=== PATIENT | male | born 1980 | race Caucasian/White ===

== ENCOUNTER 2025-02-02 14:27 | Outpatient (AMB) | payer SELFPAY ==
[2025-02-02 14:39] VITALS: BP 102/62; PULSE 72; O2SAT 98; BMI 34.3
--- NOTE | 2025-02-02 14:39 | HO.NEPHOV_ITS ---
Vital Signs 02/02/25 14:39 02/02/25 14:55 Height 5 ft 9 in Weight 232 lb BMI 34.3 BP 102/62 90/60 Blood Pressure Location Lt brachial Lt brachial Position Sitting Sitting Pulse 72 Pulse Source Pulse Oximeter Pulse Oximetry (%) 98 Oxygen Delivery Method Room Air Intake Visit Reasons: HFU Miley Cataño Dx: HTN Guest Relations Manager Required: No Accompanied by: Self / Same As Patient Allergies No Known Allergies Allergy (Verified 02/08/25 14:46) Medication List - Last Reconciled 02/02/25 by Tuan Oro MD aspirin 81 mg PO DAILY chlorthalidone 25 mg PO DAILY clopidogrel 75 mg PO DAILY labetalol 200 mg PO BID lisinopril 40 mg PO DAILY 3 months nifedipine ER 60 mg PO DAILY rosuvastatin 40 mg PO QPM HPI Comments Details: History of Present Illness The patient is a 44 year old male presenting for follow-up after a recent hospitalization for severe hypertension. He was diagnosed with hypertension approximately 2 years ago and his blood pressure was previously managed with lisinopril 40 mg, after a trial of a lisinopril-amlodipine combination. He was hospitalized a week ago at [facility] [place] after presenting with a blood pressure over 200 mmHg, accompanied by numbness in his fingers. During his few-day hospital stay, he was started on nifedipine 60 mg, lisinopril, labetalol 200 mg twice daily, and chlorthalidone. The patient reports that his current medication regimen is too strong, causing lightheadedness on standing, numbness, shortness of breath, and weakness. He also reports sexual dysfunction, which he suspects may be related to chlorthalidone or labetalol. At home, his blood pressure has been around 141/70- something this week after being higher the first week post-discharge. He was also started on rosuvastatin 40 mg for high cholesterol, which he believes is too strong and causes stomach aches, general achiness, and fatigue. The patient has a history of anxiety, for which he takes Lexapro. He denies any history of heart problems, does not smoke, and does not drink alcohol. He admits to a diet high in sodium from eating out frequently, though he is now trying to eat better and increase his water intake. 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 The patient does not currently have a primary care physician. Physical Exam General: Awake. Comfortable. HENT: Neck supple. Mucosa moist. Pulmonary: Lungs aeration equal. No rales. Cardiology: Heart S1-S2 heard. No gallop. Abdomen: Soft. Non tender. Bowel sounds normal. Neurologic: No involuntary movements. No myoclonus. Extremities: No edema. Mild numbness in fingers. [facility] Medical History High blood pressure Hypertension Family History Mother No problems noted. Father Heart problem Hypertension Social History Alcohol intake: never Physical Exam Vital Signs: Last Vital Signs Pulse 72 02/02/25 14:39 BP 90/60 02/02/25 14:55 Pulse Ox 98 02/02/25 14:39 Oxygen Delivery Method Room Air 02/02/25 14:39 BMI result Body Mass Index 34.3 Results Reviewed Nephrology Results: Hgb, (14.0-18.0) 14.6 g/dL 12/23/17 WBC, (4.8-10.8) 4.4 X10*3/uL L 12/23/17 Plt Count, (160-400) 198 X10*3/uL 12/23/17 Sodium, (135-145) 137 mmol/L 02/05/25 Potassium, (3.3-5.1) 3.7 mmol/L 02/05/25 Chloride, (96-108) 99 mmol/L 02/05/25 Carbon Dioxide, (22-29) 27 mmol/L 02/05/25 BUN, (9-16) 27 mg/dL H 02/05/25 Creatinine, (0.5-1.4) 1.25 mg/dL 02/05/25 Calcium, (8.4-10.2) 9.6 mg/dL 02/05/25 Assessment & Plan Assessment & Plan (1) Hypertension: Code(s): I10 - Essential (primary) hypertension Category: Medical Qualifiers: Hypertension type: essential hypertension Qualified Code(s): I10 - Essential (primary) hypertension Plan 1. Hypertension - The current antihypertensive regimen is causing symptomatic orthostatic hypotension with a standing blood pressure of 90/60 mmHg. - Labetalol will be decreased from 200 mg twice daily to 100 mg twice daily, with a plan to taper off completely. - The patient's side effects of shortness of breath and sexual dysfunction are suspected to be from labetalol and/or chlorthalidone. - Lisinopril will be continued as it has been well-tolerated in the past. - Blood tests will be ordered to evaluate kidney function to rule out a secondary cause of hypertension. - The patient is to follow up in one week to reassess blood pressure and further adjust medications. 2. Hyperlipidemia - The patient reports side effects including stomach ache, achiness, and fatigue from rosuvastatin 40 mg, which is considered a high starting dose. - The rosuvastatin dose will be reduced from 40 mg to 20 mg daily. - The patient was advised to establish care with a primary care doctor for ongoing management of his cholesterol. 3. Medical Leave - A work note will be provided for this visit. - The patient was advised to contact the hospital to obtain documentation for his recent hospital stay, as needed for his medical leave paperwork at work. Orders: Orders Basic Metabolic Panel 02/05/25 I10 - Essential (primary) hypertension Coding Level of Care Code New Pt Level 4 (90038) Diagnoses Essential hypertension I10 Hypertension type: essential hypertension
[2025-02-02 14:55] VITALS: BP 90/60
--- OUTSIDE RECORDS SUMMARY | 2025-02-02 18:34 | XMS_ITS | Clinical Summary ---
Author Organization [facility] Address [address] [place] [phone] Phone Care Team Providers Care Emissions Engineer Name Role Phone Anay Govea MD Primary Care Provid er Allergies No known active allergies Medications lisinopril (PRINIVIL,ZESTR IL) 40 MG tablet Take 40 mg by mouth daily. Active chlorthalidone (HYGROTON) 25 MG tablet Take 1 tablet (25 mg total) by mouth daily. 30 tablet 1 5 03/20/19 26 Active clopidogrel (PLAVIX) 75 mg tablet Take 1 tablet (75 mg total) by mouth daily for 19 doses. 19 tablet 5 02/08/20 25 Active labetaloL (TRANDATE) 200 MG tablet Take 1 tablet (200 mg total) by mouth 2 (two) times a day. 60 tablet 1 5 03/19/19 26 Active NIFEdipine (ADALAT CC) 60 MG 24 hr tablet Take 1 tablet (60 mg total) by mouth daily. 30 tablet 1 5 03/20/19 26 Active aspirin 81 MG EC tablet Take 1 tablet (81 mg total) by mouth daily. 30 tablet 1 5 03/20/19 26 Active rosuvastatin (CRESTOR) 40 MG tablet Take 1 tablet (40 mg total) by mouth every evening. 30 tablet 1 5 03/19/19 26 Active chlorthalidone (HYGROTON) 25 MG tablet Take 1 tablet (25 mg total) by mouth daily. 30 tablet 1 5 01/19/20 25 Discontinued clopidogrel (PLAVIX) 75 mg tablet Take 1 tablet (75 mg total) by mouth daily for 19 doses. 19 tablet 5 01/19/20 Discontinued labetaloL (TRANDATE) 200 MG tablet Take 1 tablet (200 mg total) by mouth 2 (two) times a day. 60 tablet 1 5 01/19/20 Discontinued NIFEdipine (ADALAT CC) 60 MG 24 hr tablet Take 1 tablet (60 mg total) by mouth daily. 30 tablet 1 5 01/19/20 Discontinued aspirin 81 MG EC tablet Take 1 tablet (81 mg total) by mouth daily. 30 tablet 1 5 01/19/20 Discontinued rosuvastatin (CRESTOR) 40 MG tablet Take 1 tablet (40 mg total) by mouth every evening. 30 tablet 1 5 01/19/20 Discontinued Active Problems Problem Noted Date Diagnosed Date Stroke risk 01/17/2025 Right hand weakness 01/16/2025 Assessment & Plan (01/17/2025 3:36 PM EST): - Unclear etiology, symptoms lasted approximately 5 minutes initially starting in the right finger spreading to the hand, arm and into the right lip as well as some numbness and tingling without materials associate strength loss. --Patient was noted to be severely hypertensive on presentation to the ED with BP of 240 systolic, has a history of hypertension noncompliant with lisinopril -CTA head and neck unremarkable, no significant LVO or vessel disease. -Suspect hypertensive emergency/urgency presenting for symptoms of possible CVA, teleneurology was consulted recommended further stroke workup MRI brain with some small vessel disease, otherwise unremarkable Plan: Teleneurology consulted rec speciated TTE ordered and pending Telemetry monitoring Teleneurology recommended extensive laboratory workup, DAPT therapy for 21 days, high intensity statin. Assessment & Plan (01/16/2025 6:22 PM EST): - Unclear etiology, symptoms lasted approximately 5 minutes initially starting in the right finger spreading to the hand, arm and into the right lip as well as some numbness and tingling without materials associate strength loss. -Neurological exam at this time is unremarkable, strength testing 5 out of 5 and sensation 5 out of 5 bilateral upper lower extremities. No ataxia. -Patient was noted to be severely hypertensive on presentation to the ED with BP of 240 systolic, has a history of hypertension noncompliant with lisinopril -CTA head and neck unremarkable, no significant LVO or vessel disease. -Suspect hypertensive emergency/urgency presenting for symptoms of possible CVA, teleneurology was consulted recommended further stroke workup Plan: Teleneurology consulted rec speciated Allow for permissive hypertension with BP goal less than 220 systolic Resume lisinopril at this time given severe hypertension MRI of the brain ordered and pending TTE ordered and pending Telemetry monitoring Teleneurology recommended extensive laboratory workup, DAPT therapy for 21 days, high intensity statin. Hypertensive urgency 01/16/2025 Assessment & Plan (01/17/2025 3:36 PM EST): - Underlying history of hypertension, has missed lisinopril on multiple occasions Does think he was diagnosed around 30, father had htn as well. Labs normal pointing away from hyperaldosteronism, and UA normal so nephritic syndrome unlikely. Resume lisinopril, have had to add chlorthalidone, labetalol, nifedipine -BP on presentation 240 systolic -Presented with symptoms of concerning for CVA Plan: Resume lisinopril, have had to add chlorthalidone, labetalol, nifedipine Kidney US to see if they are equal size Will check serum catecholamines, metanephrines Continue close clinical monitoring Assessment & Plan (01/16/2025 6:22 PM EST): - Underlying history of hypertension, has missed lisinopril on multiple occasions -BP on presentation 240 systolic -Presented with symptoms of concerning for CVA Plan: Resume lisinopril at this time BP goal of approximately 220 systolic less than 220 systolic in the first 24 hours per teleneurology recommendations for CVA workup Subsequently reduced to 160 As needed labetalol/hydralazine Continue close conical monitoring Encounters Date Type Department Care Team Description 01/18/2025 Procedure Pass [facility] Echo Lab [address] [place] [address] 01/16/2025 2:15 PM EST - 01/18/2025 3:30 PM EST Hospital Encounter [facility] Telemetry [address] [place] [address] Keanu Gutiérrez MD Grachev, Maksim, DO Russo, Margaret A, MD McKenna-Weiss, Eli, MD Discharge Disposition: Home or Self Care 01/16/2025 Procedure Pass [facility] Echo Lab [address] [place] [address] 01/16/2025 Procedure Pass [facility], Mri [address] [address] 01/16/2025 Procedure Pass [facility], Ct Scan [address] [address] 01/16/2025 Procedure Pass [address] [address] from Last 3 Months Social History Tobacco Use Types Packs/Day Years Used Date Smoking Tobacco: Never Assessed Education Answer Date Recorded Are you interested in more education? Not on kat e 01/16/2025 Are you concerned about learning? Not on file 01/16/2025 No 01/16/2025 No 01/16/2025 Food Answer Date Recorded Within the past 6 months we worried whether our food would run out before we got money to buy more. Never True 01/16/2025 Within the past 6 months the food we bought just didn't last and we didn't have enough money to get more. Never True Residential Stability Answer Date Recor ded What is your housing situation today? I have osbaldo sasha 01/16/2025 How many times have you move d in the past 12 months? Zero (I did not move) 01/16/2025 Paying for Meds Answer Date Recorded Do you have trouble paying for medicines? No 01/16/2025 Paying Utility Bills Answer Date Record ed Do you have trouble paying your heating or elect ricity bill? No 01/16/2025 Transportation Answer Date Recorded Has the lack of transportati on kept you from medical appointments or from getting medications? No 01/16/2025 Digital Access Answer Date Recorded No 01/16/2025 Yes 01/16/2025 Do you have reliable internet access at home? Ye s 01/16/2025 Do you have a device (e.g., phone, tablet, computer) with a working camera? Yes 01/16/2025 Intimate Partner Violence Answer Date R ecorded Are you denied basic needs s uch as food, clothing, or medical care? No 01/16/2025 In the past 12 months have y ou been in a relationship with a person who hurts, threatens, or tries to control you? No 01/16/2025 Are you denied basic needs s uch as food, clothing, or medical care? No 01/16/2025 In the past 12 months have y ou been in a relationship with a person who hurts, threatens, or tries to control you? No 01/16/2025 Sex and Gender Information Value Date Recorded Sex Assigned at Male 01/16/2025 1:39 PM EST Legal Sex Male 1:20 PM EST Gender Identity Male 01/16/2025 1:39 PM EST Sexual Orientation Not on file Last Filed Vital Signs Vital Sign Reading Time Taken Comments Blood Pressure 136/84 01/18/2025 11:56 AM EST Pulse 81 01/18/2025 11:56 AM EST Temperature 36.9 C (98.4 F) 01/18/2025 11:56 AM EST Respiratory Rate 18 01/18/2025 11:5 6 AM EST Oxygen Saturation 95% 01/18/2025 11: 56 AM EST Inhaled Oxygen Concentration - - Weight 107.6 kg (237 lb 3.4 oz) 025 11:50 PM EST Height 175.3 cm (5' 9 ) 01/16/2025 11:5 0 PM EST Body Mass Index 35.03 01/16/2025 11:50 PM EST Plan of Treatment Health Maintenance Due Date Last Done Comments Adult Td,Tdap Booster 1980 BLOOD PRESSURE 1980 DEPRESSION SCREENING 1992 SMOKING Hx and SMOKELESS TOBACCO SCREENING 1993 HEPATITIS C SCREENING 1998 HIV ONE-TIME SCREENING (18-6 5 YEARS) 1998 INFLUENZA VACCINE (#1) 2024 COVID-19 VACCINE ( - 2024-2 6 season) 2024 CREATININE LEVEL 01/18/2026 01/18/2025, 01/17/2025, 01/16/2025 POTASSIUM LEVEL 01/18/2026 01/18/2025, 01/17/2025, 01/16/2025 SCREENING FOR DIABETES 01/19/2028 , 01/16/2025 LIPID PANEL 01/16/2030 01/16/2025 HEPATITIS A VACCINES Aged Out No long er eligible based on patient's age to complete this topic HIB VACCINES Aged Out No longer eligi ble based on patient's age to complete this topic MENINGOCOCCAL VACCINES (ACWY) Aged Out No longer eligible based on patient's age to complete this topic MENINGOCOCCAL VACCINES (B) Aged Out N o longer eligible based on patient's age to complete this topic PNEUMOCOCCAL VACCINES (0-49 years) Aged Out No longer eligible b ased on patient's age to complete this topic Medical Devices Not on file Procedures Procedure Name Priority Date/Time Associated Diagnosis Comments TTE LIMITED W/ AGITATED SALINE Routine 01/18/2025 1:18 PM EST Transient cerebral ischemia, unspecified type TTE COMPREHENSIVE Routine 01/18/2025 8:3 7 AM EST Transient cerebral ischemia, unspecified type BASIC METABOLIC PANEL (BMP) Routine 01/18/2025 5:10 AM EST ALDOSTERONE Routine 01/18/2025 5:10 AM EST RENIN ACTIVITY Routine 01/18/2025 5:10 AM EST US KIDNEY(S) ONLY Routine 01/17/2025 2:4 5 PM EST MRI BRAIN WITHOUT CONTRAST Required for discharge 01/17/2025 10:13 AM EST PHOSPHORUS Routine 01/17/2025 5:21 AM EST MAGNESIUM Routine 01/17/2025 5:21 AM EST COMPREHENSIVE METABOLIC PANEL (CMP) Routine 01/17/2025 5:21 AM EST CBC AND DIFFERENTIAL Routine 01/17/2025 5:20 AM EST CBC AND DIFFERENTIAL Routine 01/17/2025 5:20 AM EST C-REACTIVE PROTEIN (CRP) STAT 01/16/2025 6:14 PM EST SEDIMENTATION RATE (ESR) STAT 01/16/2025 6:14 PM EST LIPOPROTEIN(A) STAT 01/16/2025 6:14 PM EST CCP IGG ANTIBODIES STAT 01/16/2025 6: 14 PM EST RHEUMATOID FACTOR STAT 01/16/2025 6:1 4 PM EST PTT (SPECIAL COAGULATION) STAT 01/16/2025 6:13 PM EST PT/INR (SPECIAL COAGULATION) STAT 01/16/2025 6:13 PM EST SPECIAL COAGULATION INTERPRETATION STAT 01/16/2025 6:13 PM EST ANTI-NEUTROPHIL CYTOPLASMIC ANTIBODY (ANCA) STAT 01/16/2025 6:13 PM EST HOMOCYSTEINE STAT 01/16/2025 6:13 PM EST ANTI-CARDIOLIPIN ANTIBODIES STAT 01/16/2025 6:13 PM EST [id number] I ANTIBODIES STAT 01/16/2025 6:13 PM EST LUPUS ANTICOAGULANT PANEL STAT 01/16/2025 6:13 PM EST D-DIMER STAT 01/16/2025 6:13 PM EST TOXICOLOGY SCREEN, URINE STAT 01/16/2025 5:09 PM EST URINALYSIS WITH REFLEX TO URINE CULTURE STAT 01/16/2025 5:09 PM EST ECG 12-LEAD STAT 01/16/2025 2:44 PM EST POCT GLUCOSE STAT 01/16/2025 2:37 PM EST CBC AND DIFFERENTIAL STAT 01/16/2025 2:33 PM EST HEMOGLOBIN A1C STAT 01/16/2025 2:33 PM EST LIPID PANEL STAT 01/16/2025 2:33 PM EST TSH WITH REFLEX STAT 01/16/2025 2:33 PM EST ETHANOL, BLOOD STAT 01/16/2025 2:33 PM EST TROPONIN STAT 01/16/2025 2:33 PM EST PT-INR STAT 01/16/2025 2:33 PM EST LFTS (HEPATIC PANEL) STAT 01/16/2025 2:33 PM EST MAGNESIUM STAT 01/16/2025 2:33 PM EST BASIC METABOLIC PANEL (BMP) STAT 01/16/2025 2:33 PM EST CBC AND DIFFERENTIAL STAT 01/16/2025 2:[address] HEAD (CODE STROKE) WITHOUT CONTRAST STAT 01/16/2025 2:[address] ANGIO HEAD (CODE STROKE) W CONTRAST, CT ANGIO NECK W CONTRAST STAT 01/16/2025 2:09 PM EST from Last 3 Months Results * TTE LIMITED W/ AGITATED SALINE (01/18/2025 1:18 PM EST) Anatomical Region Laterality Modality Heart Ultrasound Narrative 01/18/2025 1:29 PM EST Limited repeat echo to perform bubble study. A bubble study was performed using agitated saline both at rest and with Valsalva. There was no crossing of bubbles to suggest a PFO. General Findings The image quality was adequate. Agitated saline was administered during the study. The predominant rhythm during the study was sinus. IAS/IVS There is no evidence of patent foramen ovale (PFO) by agitated saline contrast. There are no detected shunting changes with maneuvers. us Jackson Ledesma MD CV ECHO ORDERABLES Final Resu lt * TTE COMPREHENSIVE (01/18/2025 8:37 AM EST) Body Surface Area 2.22 m2 Height 175 cm Weight 108 kg Systolic BP 132 mmHg Diastolic BP 88 mmHg Interventricular Septum Thickness 12 6 - 11 mm Left Ventricle Internal Diameter End Diastole 41 42 - 58 mm Left Ventricle Internal Diameter End Systole 28 <40 mm Left Ventricular Outflow Tract Diameter 25.0 mm LVOT VTI REST 229.0 mm Left Ventricular Outflow Tract Velocity 1.3 m/s Left Ventricular Outflow Tract Gradient at Rest 6 mmHg Left Ventricular Posterior Wall Thickness 12 6 - 11 mm Left Ventricle Ea Lateral Wave Speed 9.3 cm/s Left Ventricle Ea Septal Wave Speed 6.3 cm/s Ejection Fraction 68 50 - 75 Percent Aortic Valve Mean Gradient 5 mmHg Aortic Valve Time Velocity Integral 288.0 mm Aortic Valve Peak Velocity 1.5 m/s Aortic Valve Peak Gradient 9 mmHg Aortic Sinus Diameter 39 <40 mm Ascending Aorta Diameter 37 <36 mm Left Ventricle A Wave Speed 85.1 cm/s Left Ventricle E Wave Speed 52.1 cm/s Mitral Valve Mean Gradient 1 mmHg Mitral Valve Peak Gradient 3 mmHg Mitral Valve Area Continuity Equation 5.10 cm2 Pulmonary Valve Peak Velocity 1.0 m/s Pulmonary Valve Peak Gradient 4 mmHg Right Ventricle Basal Diameter 37 25 - 41 mm Raw LV EF% 53 % MV E/E' Tissue Velocity Lateral 5.60 Relative Wall Thickness 0.59 0.22 - 0.42 Left Ventricle indexed to BSA 77.4 g/m2 MV E/A ratio 0.6 MV E/e' septal 8.27 Left Ventricle E/e' Average 6.9 Aortic Valve Prosthetic Peak Gradient 9 mmHg Aortic Valve Prosthetic Mean Gradient 5 mmHg Aortic Valve Sinus Index by BSA 18 mm/m2 Aorta Sinus Index by Height 2.23 cm/m Aorta Sinus CSA index by Height 6.82 cm2/m Ascending Aorta Index 17 mm/m2 Asc Aorta CSA Index by Height 6.14 cm2/m Mitral Valve Prosthetic Peak Gradient 3 mmHg Mitral Valve Prosthetic Mean Gradient 1 mmHg Pulmonic Valve Prosthetic Peak Gradient 4 mmHg MGB CV AV DIMENSIONLESS INDEX (PEAK) - STRESS ECHO DOBUT - REST 0.87 Ascending Aorta Index 17 mm Aortic Sinus Index 18 mm Ascending Aorta Diameter 17 mm Aortic Valve Sinus Index 1 18 20 - 32 mm AO ASC DIAM BSA INDEX 16.67 Echo E/Ea 8.27 Left Atrial Volume Index 21 16 - 34 mL/m2 Right Ventricle TAPSE 27 >=17 mm Right Ventricle Pulse Doppler S Wave 14.0 >=9.5 cm/s Left Atrial Volume 46 mL Left Atrial Volume Index by Height 26 mL/m Anatomical Region Laterality Modality Heart Ultrasound Narrative 01/18/2025 11:46 AM EST Images from the original result were not included. Mild concentric LVH. LV cavity size is normal. LV systolic function is normal with EF 60 to 65%. There are no regional wall motion abnormalities. Normal diastolic function. Normal RV size and function. There is no hemodynamically significant valvular disease. There is aortic ectasia with an aortic root measuring 3.9 cm and ascending segment measuring 3.7 cm. No prior study for comparison. A bubble study was not performed, but I am going to have a limited study repeated to get this done. Left Ventricle The left ventricle is normal in size. There is concentric hypertrophy. There is normal left ventricular systolic function. The LV ejection fraction is 60% (calculated via the single plane method of discs). There are no wall motion abnormalities. LV diastolic function appears within normal limits for age. The E/A ratio is 0.6. The e' septal wave velocity is 6.3 cm/s. The e' lateral wave velocity is 9.3 cm/s. The average E/e' ratio is 6.9. Right Ventricle The right ventricle is normal in size. The RV basal dimension is 37 mm. There is normal right ventricular systolic function. TAPSE is 27 mm. RV S' wave is 14.0 cm/s. Left Atrium The left atrium is normal in size. The left atrial volume index by BSA is 21 mL/m2. Right Atrium The right atrium is normal in size. The IVC is not assessed. Mitral Valve The mitral valve appears normal. There is no mitral stenosis. There is no mitral regurgitation. Tricuspid Valve The tricuspid valve appears normal. There is no tricuspid stenosis. There is trace tricuspid regurgitation. RV systolic pressure could not be estimated due to insufficient TR Doppler envelope. Aortic Valve The aortic valve is tricuspid. There is no aortic stenosis. There is no aortic regurgitation. The aortic sinus diameter is 39 mm. The ascending aortic diameter is 37 mm. Pulmonic Valve The pulmonic valve is suboptimally visualized. The pulmonic valve appears normal. There is no pulmonic stenosis. There is no pulmonic regurgitation. Pericardium The pericardium appears normal. General Findings The image quality was fair (3). Technique(s) used in the evaluation: Color flow Doppler and Spectral Doppler. The predominant rhythm during the study was sinus. Comparison Findings There are no prior studies for comparison. IAS/IVS The interatrial septum appears normal. There is no evidence of patent foramen ovale (PFO). James Brady DO CV ECHO ORDERABLES Final Resul t * Aldosterone (01/18/2025 5:10 AM EST) Aldosterone, S 4.2 <=21 ng/dL 01/22/2025 10:05 PM EST [facility] Comment: ADDITIONAL INFORMATION Reference range for patients 11 years and older is based on upright A.M. collection from subjects without sodium restrictions. This test was developed and its performance characteristics determined by [facility] in a manner consistent with CLIA requirements. This test has not been cleared or approved by the U.S. Food and Drug Administration. Blood (Blood) 01/18/2025 5:1 0 AM EST 01/18/2025 6:11 AM EST Renee Moya MD LAB BLOOD BKR ORDERABLES Fi nal Result DAVE LARSON) [facility] [address] [place], [place] [address] [phone] * Renin Activity (01/18/2025 5:10 AM EST) Pathologist [facility] Renin Activity, P 3.1 ng/mL/h 025 1:15 PM EST [facility] Comment: REFERENCE VALUE (Peripheral vein specimen) Na-deplete, upright: Mean: 5.9 Range: 2.9-10.8 Na-replete, upright: Mean: 1.0 Range: < or =0.6-3.0 ADDITIONAL INFORMATION Testing performed by Liquid Chromatography-Tandem Mass Spectrometry (LC-MS/MS). This test was developed and its performance characteristics determined by [facility] in a manner consistent with CLIA requirements. This test has not been cleared or approved by the U.S. Food and Drug Administration. Blood (Blood) 01/18/2025 5:1 0 AM EST 01/18/2025 6:08 AM EST Renee Moya MD LAB BLOOD BKR ORDERABLES Fi nal Result [facility] [address] [place], [place] [id number] [place] [address] * Basic Metabolic Panel (BMP) (01/18/2025 5:10 AM EST) Only the most recent of2 resultswithin the time period is included. [facility] Sodium 139 136 - 145 mmol/L 01/18/2025 6:55 AM EST [facility] Potassium 3.5 3.4 - 5.1 mmol/L 01/18/2025 6:55 AM EST [facility] Chloride 102 98 - 107 mmol/L 01/18/2025 6:55 AM EST [facility] CO2 25 20 - 31 mmol/L 01/18/2025 6:55 AM [facility] Anion Gap 12 3 - 17 mmol/L 01/18/2025 6:55 AM [facility] BUN 21 6 - 23 mg/dL 01/18/2025 6:55 AM [facility] Creatinine 1.20 0.60 - 1.30 mg/dL 01/18/2025 6:55 AM [facility] eGFR 76 >59 mL/min/1.7 3m2 01/18/2025 6:55 AM [facility] Comment:Estimated glomerular filtration rate calculated using the CKD-EPI refit equation. Glucose 94 70 - 99 mg/dL 01/18/2025 6:55 AM [facility] Calcium 9.4 8.5 - 10.5 mg/dL 01/18/2025 6:55 AM [facility] Blood (Blood) 01/18/2025 5:1 0 AM EST 01/18/2025 6:11 AM EST Renee Moya MD LAB BLOOD BKR ORDERABLES Fi nal Result [address] [address] * US KIDNEY(S) ONLY (01/17/2025 2:45 PM EST) Anatomical Region Laterality Modality Abdomen, Kidney Ultrasound 01/17/2025 2:46 PM EST Impressions 01/17/2025 2:46 PM EST 1. No hydronephrosis. 2. No sonographic evidence for solid renal mass or shadowing stone Narrative 01/17/2025 2:46 PM EST US KIDNEY(S) ONLY Referring clinician's provided indication for this examination in [facility]: Hypertension, primary; accelerated HTN in young person, ?disparate size of kidneys TECHNIQUE: Kidney ultrasound. COMPARISON: None available FINDINGS: Right Kidney: Size: 11.2 cm No stones or hydronephrosis. Left Kidney: Size: 11.6 cm No stones or hydronephrosis. Bladder: Underdistended and therefore not well evaluated. Procedure Note Manny Cloud MD - 01/17/2025 US KIDNEY(S) ONLY Referring clinician's provided indication for this examination in [facility]:Hypertension, primary; accelerated HTN in young person, ?disparate size ofkidneys TECHNIQUE: Kidney ultrasound. COMPARISON: None available FINDINGS: Right Kidney: Size: 11.2 cm No stones or hydronephrosis. Left Kidney: Size: 11.6 cm No stones or hydronephrosis. Bladder: Underdistended and therefore not well evaluated. IMPRESSION: 1. No hydronephrosis. 2. No sonographic evidence for solid renal mass or shadowing stone Reene Moya MD IM US RENAL Final Resul t * MRI BRAIN WITHOUT CONTRAST (01/17/2025 10:13 AM EST) Anatomical Region Laterality Modality Head Magnetic Resonan ce 01/17/2025 10:1 5 AM EST Impressions 01/17/2025 10:21 AM EST 1. Probable mild chronic small vessel disease. No acute or subacute infarct. Narrative 01/17/2025 10:21 AM EST MRI BRAIN WITHOUT CONTRAST Referring clinician's provided indication for this examination in [facility]: * Transient ischemic attack (TIA) TECHNIQUE: MRI BRAIN WITHOUT CONTRAST Multi-sequence, multi-planar MRI of the brain was performed without intravenous contrast. COMPARISON: CT head January 16, 2025 FINDINGS: Brain Parenchyma: No acute or subacute infarct. There is one small nonspecific focus of susceptibility effect within the right frontal white matter. No intracranial mass lesion. There are scattered foci of T2 hyperintensity in the white matter, likely a manifestation of chronic small vessel disease. Ventricular System and Extra-Axial Spaces: Normal. No evidence of midline shift or hydrocephalus. Extracranial Structures: Expected arterial flow signal is observed at the skull base. Procedure Note Hugo Ruffin DO - 01/17/2025 MRI BRAIN WITHOUT CONTRAST Referring clinician's provided indication for this examination in [facility]: *Transient ischemic attack (TIA) TECHNIQUE: MRI BRAIN WITHOUT CONTRAST Multi-sequence, multi-planar MRI of the brain was performed withoutintravenous contrast. COMPARISON: CT head January 16, 2025 FINDINGS: Brain Parenchyma: No acute or subacute infarct. There is one smallnonspecific focus of susceptibility effect within the right frontal whitematter. No intracranial mass lesion. There are scattered foci of [id number] in the white matter, likely a manifestation of chronicsmall vessel disease. Ventricular System and Extra-Axial Spaces: Normal. No evidence of midlineshift or hydrocephalus. Extracranial Structures: Expected arterial flow signal is observed at theskull base. IMPRESSION: 1. Probable mild chronic small vessel disease. No acute or subacuteinfarct. us James Brady DO IMG MR HEAD/NECK Final Result * Comprehensive Metabolic Panel (CMP) (01/17/2025 5:21 AM EST) Sodium 139 136 - 145 mmol/L 01/17/2025 7:03 AM [facility] Potassium 3.8 3.4 - 5.1 mmol/L 01/17/2025 7:03 AM [facility] Chloride 102 98 - 107 mmol/L 01/17/2025 7:03 AM [facility] CO2 25 20 - 31 mmol/L 01/17/2025 7:03 AM [facility] Anion Gap 12 3 - 17 mmol/L 01/17/2025 7:03 AM [facility] BUN 16 6 - 23 mg/dL 01/17/2025 7:03 AM [facility] Creatinine 0.90 0.60 - 1.30 mg/dL 01/17/2025 7:03 AM [facility] eGFR 108 >59 mL/min/1.7 3m2 01/17/2025 7:03 AM [facility] Comment:Estimated glomerular filtration rate calculated using the CKD-EPI refit equation. Glucose 94 70 - 99 mg/dL 01/17/2025 7:03 AM [facility] Calcium 9.6 8.5 - 10.5 mg/dL 01/17/2025 7:03 AM [facility] AST 21 <40 U/L 01/17/2025 7:03 AM [facility] ALT 21 <50 U/L 01/17/2025 7:03 AM [facility] Alkaline Phosphatase 93 40 - 130 U/L 01/17/2025 7:03 AM [facility] Bilirubin, Total 1.1 0.0 - 1.2 mg/dL 01/17/2025 7:03 AM [facility] Total Protein 7.5 6.4 - 8.3 g/dL 01/17/2025 7:03 AM [facility] Albumin 4.6 3.5 - 5.2 g/dL 01/17/2025 7:03 AM [facility] Globulin 2.9 1.9 - 4.1 g/dL 01/17/2025 7:03 AM [facility] Blood (Blood) Venipuncture / Unknown 01/17/2025 5:21 AM EST 01/17/2025 6:14 AM EST us [facility] DO LAB BLOOD BKR ORDERABLES Final Result [address] [address] * Phosphorus (01/17/2025 5:21 AM EST) Phosphorus 3.3 2.5 - 4.5 mg/dL 01/17/2025 7:03 AM [facility] Blood (Blood) Venipuncture / Unknown 01/17/2025 5:21 AM EST 01/17/2025 6:14 AM EST us [employer] DO LAB BLOOD BKR ORDERABLES Final Result [address] [address] * Magnesium (01/17/2025 5:21 AM EST) Only the most recent of2 resultswithin the time period is included. Magnesium 2.3 1.7 - 2.6 mg/dL 01/17/2025 7:03 AM [facility] Blood (Blood) Venipuncture / Unknown 01/17/2025 5:21 AM EST 01/17/2025 6:14 AM EST us James Caraballofaribamar LAB BLOOD BKR ORDERABLES Final Result [facility] [address] [place] [address] * CBC and Differential (01/17/2025 5:20 AM EST) Only the most recent of2 resultswithin the time period is included. WBC 6.28 4.00 - 11.00 K/uL 01/17/2025 6:32 AM [facility] RBC 5.10 4.50 - 5.90 M/uL 01/17/2025 6:32 AM [facility] Hemoglobin 15.3 13.5 - 17.5 g/dL 01/17/2025 6:32 AM [facility] Hematocrit 44.7 41.0 - 53.0 % 01/17/2025 6:32 AM [facility] MCV 87.6 80.0 - 100.0 fL 01/17/2025 6:32 AM [facility] MCH 30.0 27.0 - 31.0 pg 01/17/2025 6:32 AM [facility] MCHC 34.2 32.0 - 36.0 g/dL 01/17/2025 6:32 AM [facility] MPV 11.4 8.4 - 12.0 fL 01/17/2025 6:32 AM [facility] RDW-CV 12.6 11.5 - 14.5 % 01/17/2025 6:32 AM [facility] PLT 209 150 - 450 K/uL 01/17/2025 6:32 AM [facility] Neutrophils 63.3 % 01/17/2025 6:32 AM [facility] Lymphocytes 24.7 % 01/17/2025 6:32 AM [facility] Monocytes 10.4 % 01/17/2025 6:32 AM [facility] Eosinophils 1.0 % 01/17/2025 6:32 AM [facility] Basophils 0.3 % 01/17/2025 6:32 AM [facility] Imm Grans 0.3 % 01/17/2025 6:32 AM [facility] NRBC 0.0 <=0.0 /100 WBCs 01/17/2025 6:32 AM [facility] Absolute Neutrophils 3.98 1.92 - 7.60 K/uL 01/17/2025 6:32 AM [facility] Absolute Lymphocytes 1.55 0.72 - 4.10 K/uL 01/17/2025 6:32 AM [facility] Absolute Monocytes 0.65 0.16 - 1.10 K/uL 01/17/2025 6:32 AM [facility] Absolute Eosinophils 0.06 0.00 - 0.50 K/uL 01/17/2025 6:32 AM [facility] Absolute Basophils 0.02 0.00 - 0.15 K/uL 01/17/2025 6:32 AM [facility] Absolute Imm Grans 0.02 0.00 - 0.09 K/uL 01/17/2025 6:32 AM [facility] Absolute NRBC 0.00 <=0.00 K cells/uL 01/17/2025 6:32 AM [facility] Absolute Neutrophils 3.98 1.92 - 7.60 K/uL 01/17/2025 6:32 AM [facility] Comment:Automated cell count . Manual ANC may differ if performed. Diff Type Auto 01/17/2025 6:32 AM [facility] Blood (Blood) Venipuncture / Unknown 01/17/2025 5:20 AM EST 01/17/2025 6:14 AM EST us James Brady DO LAB BLOOD BKR ORDERABLES Final Result [facility] [address] [place] [address] * Lipoprotein(a) (01/16/2025 6:14 PM EST) Blood (Blood) Venipuncture / Unknown 01/16/2025 6:14 PM EST 01/16/2025 6:16 PM EST us James Brady DO LAB BLOOD BKR ORDERABLES Final Result HERNANDEZ (BEAKER) * CCP Antibody, IgG (01/16/2025 6:14 PM EST) CCP Antibody, IgG <8 0 - 16 U/mL 01/18/2025 12:41 PM EST [facility] Blood (Blood) Venipuncture / Unknown 01/16/2025 6:14 PM EST 01/16/2025 6:16 PM EST us James Brady DO LAB BLOOD BKR ORDERABLES Final Result Performing Organization Address City/[facility]/ZIP Co de Phone Number [address] [address] * Erythrocyte Sedimentation Rate (ESR) (01/16/2025 6:14 PM EST) ESR 9 0 - 15 mm/h 01/16/2025 6:32 PM EST [facility] Blood (Blood) Venipuncture / Unknown 01/16/2025 6:14 PM EST 01/16/2025 6:17 PM EST us James Brady DO LAB BLOOD BKR ORDERABLES Final Result Performing Organization Address City/[facility]/ZIP Co de Phone Number [address] [address] * Rheumatoid Factor (01/16/2025 6:14 PM EST) Rheumatoid Factor (RF) <10 <=14 IU/ml 01/16/2025 6:48 PM EST [facility] Blood (Blood) Venipuncture / Unknown 01/16/2025 6:14 PM EST 01/16/2025 6:17 PM EST us James Brady DO LAB BLOOD BKR ORDERABLES Final Result Performing Organization Address [facility] Co de Phone Number [address] [address] * C-Reactive Protein (CRP) (01/16/2025 6:14 PM EST) C Reactive Protein <3.0 <10.0 mg/L 01/16/2025 6:48 PM EST [facility] Comment:NOTE: This reference range is for the evaluation of inflammation. Order CRP, High Sensitivity for cardiac risk status evaluation. Blood (Blood) Venipuncture / Unknown 01/16/2025 6:14 PM EST 01/16/2025 6:17 PM EST James [email or web address] DO LAB BLOOD BKR ORDERABLES Final Result Performing Organization Address [facility] Co de Phone Number [address] [address] * PTT (Special Coagulation) (01/16/2025 6:13 PM EST) PTT 30.3 24.0 - 37.5 sec 01/18/2025 9:50 AM EST [facility] Blood (Blood) Venipuncture / Unknown 01/16/2025 6:13 PM EST 01/16/2025 6:16 PM EST James [email or web address] DO LAB BLOOD BKR ORDERABLES Final Result Performing Organization Address [facility]/ZIP Co de Phone Number [address] [address] * PT/INR (Special Coagulation) (01/16/2025 6:13 PM EST) PT 12.8 10.0 - 13.0 sec 01/18/2025 10:05 AM EST [facility] INR 1.1 0.9 - 1.1 01/18/2025 10:05 AM EST [facility] Blood (Blood) Venipuncture / Unknown 01/16/2025 6:13 PM EST 01/16/2025 6:16 PM EST us James Grachev DO LAB BLOOD BKR ORDERABLES Final Result [address] [address] * Special Coagulation Interpretation (01/16/2025 6:13 PM EST) [facility] Special Coagulation Interpretation 1. The PT and PTT are within the reference ranges. 2. No evidence of antiphospholipid antibodies. The DRVVT and PTT-LA screens are negative for a lupus anticoagulant. The IgG/IgM anti-beta2 glycoprotein I and IgG/IgM anticardiolipin antibodies are NOT elevated. 01/22/2025 4:20 PM EST [facility] Comment: . Blood (Blood) Venipuncture / Unknown 01/16/2025 6:13 PM EST 01/16/2025 6:16 PM EST us James Grachev DO LAB BLOOD BKR ORDERABLES Final Result Performing Organization Address [facility] Co de Phone Number [address] [address] * Ijbt-0-Gobubktkjlwf I Antibodies (01/16/2025 6:13 PM EST) [facility] Beta 2 GP1 Ab IgG, S <9.4 <15.0 (Negative) SGU 01/19/2025 11:43 AM EST [facility] Beta 2 GP1 Ab IgM, S <9.4 <15.0 (Negative) [facility] 01/19/2025 11:43 AM EST [facility] Blood (Blood) Venipuncture / Unknown 01/16/2025 6:13 PM EST 01/16/2025 6:17 PM EST us James Grachev DO LAB BLOOD BKR ORDERABLES Final Result DAVE LARSON) [facility] [address] [place] [address], [facility] [phone] * Lupus Anticoagulant Panel (01/16/2025 6:13 PM EST) [facility] PTT-LA Screen Negative for a lupus anticoagulant Negative for a lupus anticoagulant 5 10:07 AM EST [facility] DRVVT Screen Negative for a lupus anticoagulant Negative for a lupus anticoagulant 5 10:07 AM EST [facility] Comment:This result was prev iously suppressed from the chart. Blood (Blood) Venipuncture / Unknown 01/16/2025 6:13 PM EST 01/16/2025 6:16 PM EST us James [employer] DO LAB BLOOD BKR ORDERABLES Final Result [address] [address] * Anti-Cardiolipin Antibodies (01/16/2025 6:13 PM EST) [facility] Phospholipid Ab IgM, S <9.4 <15.0 (Negative) MPL 01/19/2025 9:47 PM EST [facility] Phospholipid Ab IgG, S <9.4 <15.0 (Negative) GPL 01/19/2025 9:47 PM EST [facility] Blood (Blood) Venipuncture / Unknown 01/16/2025 6:13 PM EST 01/16/2025 6:17 PM EST us James [employer] DO LAB BLOOD BKR ORDERABLES Final Result DAVE LARSON) [place] [address] [place] [address], [facility] [phone] * Anti-Neutrophil Cytoplasmic Antibody (ANCA) (01/16/2025 6:13 PM EST) [facility] Myeloperoxidase Ab, S <0.2 <0.4 (Negative ) U 01/18/2025 11:11 AM EST [facility] Proteinase 3 Ab (PR3), S <0.2 <0.4 (Negative ) U 01/18/2025 11:11 AM EST [facility] Blood (Blood) Venipuncture / Unknown 01/16/2025 6:13 PM EST 01/16/2025 6:17 PM EST us [employer] DO LAB BLOOD BKR ORDERABLES Final Result ACOSTA (BEAKER) [facility] [address] [phone] * D-Dimer (01/16/2025 6:13 PM EST) D-Dimer 483 <500 ng/mL FEU 01/16/2025 6:38 PM EST [facility] Comment:A negative D-dimer r esult (at a cut off of 500 ng/mL FEU) when combined with a clinical assessment of low pretest probability has been shown to have a high negative predictive value for DVT or PE. Clinical correlation is required. Blood (Blood) Venipuncture / Unknown 01/16/2025 6:13 PM EST 01/16/2025 6:17 PM EST us [employer] DO LAB BLOOD BKR ORDERABLES Final Result [address] [address] * Homocysteine (01/16/2025 6:13 PM EST) Homocysteine, Total 8.7 0.0 - 14.2 umol/L 01/18/2025 11:40 AM EST [facility] Blood (Blood) Venipuncture / Unknown 01/16/2025 6:13 PM EST 01/16/2025 6:16 PM EST [employer] DO LAB BLOOD BKR ORDERABLES Final Result [facility] [address] [place] [address] * (ABNORMAL) Urinalysis with Reflex to Urine Culture (01/16/2025 5:09 PM EST) Color Yellow Yellow 01/16/2025 5:37 PM EST [facility] Clarity Clear Clear 01/16/2025 5:37 PM [facility] Glucose Negative Negative 01/16/2025 5:37 PM [facility] Bilirubin Urine Negative Negative 5:37 PM [facility] Ketone Urine 1+(A) Negative 01/16/2025 5:37 PM [facility] Specific [place] <=1.005 1.001 - 1.035 01/16/2025 5:37 PM [facility] Blood Negative Negative 01/16/2025 5:37 PM [facility] pH 6.5 5.0 - 8.0 01/16/2025 5:37 PM [facility] Protein Negative Negative 01/16/2025 5:37 PM [facility] Nitrites Negative Negative 01/16/2025 5:37 PM [facility] Leukocyte Esterase Negative Negative 01/16/2025 5:37 PM [facility] Urobilinogen Negative Negative 01/16/2025 5:37 PM [facility] Urine (Urine, Voided) Non-Blood Collection / Unknown 01/16/2025 5:09 PM EST 01/16/2025 5:36 PM EST us Keanu Gutiérrez MD LAB URINE ORDERABLES Final Resu lt [facility] [address] [place] [address] * Toxicology Screen, Urine (01/16/2025 5:09 PM EST) Amphetamines, Urine Negative Negative 01/16/2025 5:45 PM EST [facility] Benzodiazepine , Urine Negative Negative 01/16/2025 5:45 PM [facility] Cocaine Metabolite, Urine Negative Negative 01/16/2025 5:45 PM [facility] Opiates, Urine Negative Negative 01/16/2025 5:45 PM EST [facility] Oxycodone, Urine Negative Negative 01/16/2025 5:45 PM EST [facility] Fentanyl, Urine Negative Negative 01/16/2025 5:45 PM EST [facility] Creatinine, Urine 50 20 - 300 mg/dL 01/16/2025 5:45 PM EST [facility] Urine (Urine, Voided) Non-Blood Collection / Unknown 01/16/2025 5:09 PM EST 01/16/2025 5:25 PM EST Narrative [facility] - 01/16/2025 5:45 PM EST This screening test was performed by immunoassay methodology, which may occasionally yield false-negative or false-positive results. Confirmatory testing can be requested if a definitive result is needed. Results are to be used only for medical (ie, treatment) purposes. Unconfirmed screening results must not be used for non-medical purposes (eg, employment testing). Keanu Gutiérrez MD LAB URINE ORDERABLES Final Resu lt Performing Organization Address City/[facility] Co de Phone Number [address] [address] * ECG 12-LEAD (01/16/2025 2:44 PM EST) Ventricular Rate EKG/MIN 98 BPM [facility] Atrial Rate 98 BPM [facility] ID Interval 128 ms [facility] QRS Duration 92 ms [facility] QT Interval 372 ms [facility] QTC Interval 474 ms [facility] P Berkley 31 degrees [facility] R Wave Berkley 39 degrees [facility] T Wave Berkley 10 degrees [facility] 01/16/2025 2:44 PM EST 01/17/2025 12:58 PM EST Narrative [facility] - 01/17/2025 12:58 PM EST Normal sinus rhythm Normal ECG No previous ECGs available Confirmed by Jackson Ledesma ([id number]) on 01/17/2025 12:58:50 PM Keanu Gutiérrez MD ECG ORDERABLES Final Result Performing Organization Address City/[facility] Co de Phone Number [email or web address] * (ABNORMAL) POCT Glucose (01/16/2025 2:37 PM EST) Glucose 109(H) 70 - 99 mg/dL 01/16/2025 2:42 PM EST [facility] Blood (Blood) 01/16/2025 2:3 7 PM EST 01/16/2025 2:42 PM EST us Keanu Gutiérrez MD LAB POCT DOCKED DEVICE UNSOLICT ED RESULTS Final Result Performing Organization Address [facility] Co de Phone Number [address] [address] * Ethanol, Blood (01/16/2025 2:33 PM EST) Pathologist [facility] Ethanol <10 Negative; <11 mg/dL 01/16/2025 3:51 PM EST [facility] Blood (Blood) Venipuncture / Unknown 01/16/2025 2:33 PM EST 01/16/2025 3:28 PM EST us Keanu Gutiérrez MD LAB BLOOD BKR ORDERABLES Final Result Performing Organization Address [facility] Co de Phone Number [address] [address] * Thyroid Stimulating Hormone (TSH), with Reflex (01/16/2025 2:33 PM EST) Pathologist [facility] TSH 1.28 0.40 - 5.00 uIU/mL 01/16/2025 3:51 PM EST [facility] Blood (Blood) Venipuncture / Unknown 01/16/2025 2:33 PM EST 01/16/2025 3:28 PM EST us Keanu Gutiérrez MD LAB BLOOD BKR ORDERABLES Final Result Performing Organization Address [facility] Co de Phone Number [address] [address] * Hepatic Panel (LFTs) (01/16/2025 2:33 PM EST) AST 25 <40 U/L 01/16/2025 3:51 PM [facility] ALT 23 <50 U/L 01/16/2025 3:51 PM [facility] Alkaline Phosphatase 96 40 - 130 U/L 01/16/2025 3:51 PM [facility] Bilirubin, Total 0.7 0.0 - 1.2 mg/dL 01/16/2025 3:51 PM [facility] Bilirubin, Direct 0.2 0.0 - 0.3 mg/dL 01/16/2025 3:51 PM [facility] Total Protein 7.5 6.4 - 8.3 g/dL 01/16/2025 3:51 PM [facility] Albumin 4.5 3.5 - 5.2 g/dL 01/16/2025 3:51 PM [facility] Globulin 3.0 1.9 - 4.1 g/dL 01/16/2025 3:51 PM [facility] Blood (Blood) Venipuncture / Unknown 01/16/2025 2:33 PM EST 01/16/2025 3:28 PM EST us Keanu Gutiérrez MD LAB BLOOD BKR ORDERABLES Final Result Performing Organization Address City/State/[facility] Co de Phone Number [address] [address] * PT-INR (01/16/2025 2:33 PM EST) PT 12.9 10.0 - 13.0 sec 01/16/2025 3:10 PM [facility] INR 1.0 0.9 - 1.1 01/16/2025 3:10 PM [facility] Comment:Therapeutic Range 2. 0 - 3.5 Blood (Blood) Venipuncture / Unknown 01/16/2025 2:33 PM EST 01/16/2025 3:06 PM EST us Keanu Gutiérrez MD LAB BLOOD BKR ORDERABLES Final Result [address] [address] * Troponin (01/16/2025 2:33 PM EST) [facility] Troponin-T HS Gen5 9 0 - 14 ng/L 01/16/2025 3:08 PM EST [facility] Blood (Blood) Venipuncture / Unknown 01/16/2025 2:33 PM EST 01/16/2025 2:56 PM EST Keanu Gutiérrez MD LAB BLOOD BKR ORDERABLES Final Result Performing Organization Address [facility] Co de Phone Number [address] [address] * Hemoglobin A1c (01/16/2025 2:33 PM EST) [facility] Hemoglobin A1c 5.6 4.3 - 5.6 % 01/16/2025 4:44 PM EST [facility] Calculated Mean Blood Glucose 114 mg/dL 01/16/2025 4:44 PM [facility] Comment:There is no establis hed normal range for the Estimated Average Glucose (EAG). However, a HbA1c of 5.6% (upper limit of normal) represents an EAG of 114 mg/dL. The diagnostic HbA1c level for diabetes is greater than or equal to 6.5%, which represents an EAG greater than or equal to 140 mg/dL. Blood (Blood) Venipuncture / Unknown 01/16/2025 2:33 PM EST 01/16/2025 4:28 PM EST us Keanu Gutiérrez MD LAB BLOOD BKR ORDERABLES Final Result Performing Organization Address City/[facility]/ZIP Co de Phone Number [address] [address] * (ABNORMAL) Lipid Panel (01/16/2025 2:33 PM EST) [facility] Cholesterol 194 <200 mg/dL 01/16/2025 3:51 PM EST [facility] HDL 40 >=40 mg/dL 01/16/2025 3:51 PM EST [facility] Calculated LDL 108 <130 mg/dL 01/16/2025 3:51 PM EST [facility] Comment:LDL is calculated us ing the Raymundo-NIH equation (RITCHIE Cardiol. 2019June 29;5(5):540-548). Non-HDL Cholesterol 154 mg/dL 01/16/2025 3:51 PM EST [facility] Comment:Guidelines suggest a non-HDL cholesterol goal 30 mg/dL higher than the patient-specific LDL cholesterol goal. Cardiac Risk Ratio 4.9 0.0 - 5.0 2024 3:51 PM EST [facility] Triglycerides 266(H) <=150 mg/dL 01/16/2025 3:51 PM EST [facility] Blood (Blood) Venipuncture / Unknown 01/16/2025 2:33 PM EST 01/16/2025 3:28 PM EST us Keanu Gutiérrez MD LAB BLOOD BKR ORDERABLES Final Result [address] [address] * CT ANGIO HEAD (CODE STROKE) W CONTRAST, CT ANGIO NECK W CONTRAST (01/16/2025 2:09 PM EST) [facility] IMG DRILL OPERATOR COMMENT No acute intracranial findings on noncontrast head CT. No large vessel occlusion, high-grade stenosis, aneurysm or dissection in the head or neck. [facility] Anatomical Region Laterality Modality Neck Computed Tomogra phy 01/16/2025 2:12 PM EST Impressions 01/16/2025 2:49 PM EST 1. No acute intracranial findings on noncontrast head CT. 2. No large vessel occlusion, high-grade stenosis, aneurysm or dissection in the head or neck. A clinically significant result was initiated on 01/16/2025 2:25 PM, Message ID [id number]. ATTESTATION: I, Nikhil Marcus as teaching physician, have reviewed the images for this case and if necessary edited the report originally created by Jose Larsen MD. Narrative 01/16/2025 2:[address] ANGIO HEAD (CODE STROKE) W CONTRAST, CT ANGIO NECK W CONTRAST, CT HEAD (CODE STROKE) WITHOUT CONTRAST Referring clinician's provided indication for this examination in Epic: * Neuro deficit, acute, stroke suspected; Bobby, right hand numbness, right lip numbness, BP 240's systolic TECHNIQUE: * CTA of the head was performed before and after administration of intravenous contrast using tailored dose modulation techniques. Images were reconstructed in the axial, coronal, and sagittal planes, including angiographic image post-processing. 3D angiographic images with reformatting and post-processing reconstructions were performed and interpreted. * CTA of the neck was performed after administration of intravenous contrast using tailored dose modulation techniques. Images were reconstructed in the axial, coronal, and sagittal planes. 3D angiographic images with reformatting and post- processing reconstructions were performed and interpreted. COMPARISON: None FINDINGS: CT HEAD: Brain Parenchyma: No midline shift, mass effect, parenchymal hemorrhage, or evidence of acute territorial infarct. No enhancing abnormality. Ventricular System and Extra-Axial Spaces: No extra-axial fluid collections. Basal cisterns are patent. No hydrocephalus. Osseous and Extracranial Structures: No calvarial lesion identified. Mild scattered paranasal sinus mucosal thickening with right maxillary mucous retention cyst. No orbital abnormality. CTA HEAD: No aneurysm or arteriovenous malformation. Intracranial internal carotid arteries: No occlusion or high grade stenosis. Anterior cerebral arteries: No occlusion or high grade stenosis. Middle cerebral arteries: No occlusion or high grade stenosis. Vertebrobasilar system: No occlusion or high grade stenosis. Posterior cerebral arteries: No occlusion or high grade stenosis. Venous: No dural sinus thrombosis. CTA NECK: Aortic Arch and Branch Vessel Origins: Normal branching anatomy. No high grade stenosis. Right Carotid Artery: No occlusion, high grade stenosis or dissection. Left Carotid Artery: No occlusion, high grade stenosis or dissection. Right Vertebral Artery: No occlusion, high grade stenosis or dissection. Left Vertebral Artery: No occlusion, high grade stenosis or dissection. Venous structures: The jugular veins enhance normally. NON-VASCULAR FINDINGS: Lungs and Airways: No acute abnormality. Soft tissues: No adenopathy. Bones: Degenerative changes of the cervical spine. Procedure Note Nikhil Marcus MBTRISHA - 01/16/2025 CT ANGIO HEAD (CODE STROKE) W CONTRAST, CT ANGIO NECK W CONTRAST, CT HEAD(CODE STROKE) WITHOUT CONTRAST Referring clinician's provided indication for this examination in Epic: *Neuro deficit, acute, stroke suspected; Bobby, right hand numbness, right lipnumbness, BP 240's systolic TECHNIQUE: * CTA of the head was performed before and after administration ofintravenous contrast using tailored dose modulation techniques. Imageswere reconstructed in the axial, coronal, and sagittal planes, includingangiographic image post- processing. 3D angiographic images withreformatting and post-processing reconstructions were performed andinterpreted. * CTA of the neck was performed after administration of intravenouscontrast using tailored dose modulation techniques. Images werereconstructed in the axial, coronal, and sagittal planes. 3D angiographicimages with reformatting and post-processing reconstructions wereperformed and interpreted. COMPARISON: None FINDINGS: CT HEAD: Brain Parenchyma: No midline shift, mass effect, parenchymal hemorrhage,or evidence of acute territorial infarct. No enhancing abnormality. Ventricular System and Extra-Axial Spaces: No extra-axial fluidcollections. Basal cisterns are patent. No hydrocephalus. Osseous and Extracranial Structures: No calvarial lesion identified. Mildscattered paranasal sinus mucosal thickening with right maxillary mucousretention cyst. No orbital abnormality. CTA HEAD: No aneurysm or arteriovenous malformation. Intracranial internal carotid arteries: No occlusion or high gradestenosis. Anterior cerebral arteries: No occlusion or high grade stenosis. Middle cerebral arteries: No occlusion or high grade stenosis. Vertebrobasilar system: No occlusion or high grade stenosis. Posterior cerebral arteries: No occlusion or high grade stenosis. Venous: No dural sinus thrombosis. CTA NECK: Aortic Arch and Branch Vessel Origins: Normal branching anatomy. No highgrade stenosis. Right Carotid Artery: No occlusion, high grade stenosis or dissection. Left Carotid Artery: No occlusion, high grade stenosis or dissection. Right Vertebral Artery: No occlusion, high grade stenosis or dissection. Left Vertebral Artery: No occlusion, high grade stenosis or dissection. Venous structures: The jugular veins enhance normally. NON-VASCULAR FINDINGS: Lungs and Airways: No acute abnormality. Soft tissues: No adenopathy. Bones: Degenerative changes of the cervical spine. IMPRESSION: 1. No acute intracranial findings on noncontrast head CT. 2. No large vessel occlusion, high-grade stenosis, aneurysm or dissectionin the head or neck. A clinically significant result was initiated on 01/16/2025 2:25 PM,Message ID [id number]. ATTESTATION: Nikhil Puente as teaching physician, have reviewed theimages for this case and if necessary edited the report originally createdby Jose Larsen MD. Keanu Gutiérrez MD IMG CT HEAD/NECK Final Result * CT HEAD (CODE STROKE) WITHOUT CONTRAST (01/16/2025 2:09 PM EST) MGB IMG DRILL OPERATOR COMMENT No acute intracranial findings on noncontrast head CT. No large vessel occlusion, high-grade stenosis, aneurysm or dissection in the head or neck. [facility] Anatomical Region Laterality Modality Head Computed Tomogra phy 01/16/2025 2:12 PM EST Impressions 01/16/2025 2:49 PM EST 1. No acute intracranial findings on noncontrast head CT. 2. No large vessel occlusion, high-grade stenosis, aneurysm or dissection in the head or neck. A clinically significant result was initiated on 01/16/2025 2:25 PM, Message ID [id number]. ATTESTATION: Nikhil Puente as teaching physician, have reviewed the images for this case and if necessary edited the report originally created by Jose Larsen MD. Narrative 01/16/2025 2:[address] ANGIO HEAD (CODE STROKE) W CONTRAST, CT ANGIO NECK W CONTRAST, CT HEAD (CODE STROKE) WITHOUT CONTRAST Referring clinician's provided indication for this examination in Epic: * Neuro deficit, acute, stroke suspected; Bobby, right hand numbness, right lip numbness, BP 240's systolic TECHNIQUE: * CTA of the head was performed before and after administration of intravenous contrast using tailored dose modulation techniques. Images were reconstructed in the axial, coronal, and sagittal planes, including angiographic image post-processing. 3D angiographic images with reformatting and post-processing reconstructions were performed and interpreted. * CTA of the neck was performed after administration of intravenous contrast using tailored dose modulation techniques. Images were reconstructed in the axial, coronal, and sagittal planes. 3D angiographic images with reformatting and post- processing reconstructions were performed and interpreted. COMPARISON: None FINDINGS: CT HEAD: Brain Parenchyma: No midline shift, mass effect, parenchymal hemorrhage, or evidence of acute territorial infarct. No enhancing abnormality. Ventricular System and Extra-Axial Spaces: No extra-axial fluid collections. Basal cisterns are patent. No hydrocephalus. Osseous and Extracranial Structures: No calvarial lesion identified. Mild scattered paranasal sinus mucosal thickening with right maxillary mucous retention cyst. No orbital abnormality. CTA HEAD: No aneurysm or arteriovenous malformation. Intracranial internal carotid arteries: No occlusion or high grade stenosis. Anterior cerebral arteries: No occlusion or high grade stenosis. Middle cerebral arteries: No occlusion or high grade stenosis. Vertebrobasilar system: No occlusion or high grade stenosis. Posterior cerebral arteries: No occlusion or high grade stenosis. Venous: No dural sinus thrombosis. CTA NECK: Aortic Arch and Branch Vessel Origins: Normal branching anatomy. No high grade stenosis. Right Carotid Artery: No occlusion, high grade stenosis or dissection. Left Carotid Artery: No occlusion, high grade stenosis or dissection. Right Vertebral Artery: No occlusion, high grade stenosis or dissection. Left Vertebral Artery: No occlusion, high grade stenosis or dissection. Venous structures: The jugular veins enhance normally. NON-VASCULAR FINDINGS: Lungs and Airways: No acute abnormality. Soft tissues: No adenopathy. Bones: Degenerative changes of the cervical spine. Procedure Note Nikhil Marcus MBBS - 01/16/2025 CT ANGIO HEAD (CODE STROKE) W CONTRAST, CT ANGIO NECK W CONTRAST, CT HEAD(CODE STROKE) WITHOUT CONTRAST Referring clinician's provided indication for this examination in Epic: *Neuro deficit, acute, stroke suspected; Bobby, right hand numbness, right lipnumbness, BP 240's systolic TECHNIQUE: * CTA of the head was performed before and after administration ofintravenous contrast using tailored dose modulation techniques. Imageswere reconstructed in the axial, coronal, and sagittal planes, includingangiographic image post- processing. 3D angiographic images withreformatting and post-processing reconstructions were performed andinterpreted. * CTA of the neck was performed after administration of intravenouscontrast using tailored dose modulation techniques. Images werereconstructed in the axial, coronal, and sagittal planes. 3D angiographicimages with reformatting and post-processing reconstructions wereperformed and interpreted. COMPARISON: None FINDINGS: CT HEAD: Brain Parenchyma: No midline shift, mass effect, parenchymal hemorrhage,or evidence of acute territorial infarct. No enhancing abnormality. Ventricular System and Extra-Axial Spaces: No extra-axial fluidcollections. Basal cisterns are patent. No hydrocephalus. Osseous and Extracranial Structures: No calvarial lesion identified. Mildscattered paranasal sinus mucosal thickening with right maxillary mucousretention cyst. No orbital abnormality. CTA HEAD: No aneurysm or arteriovenous malformation. Intracranial internal carotid arteries: No occlusion or high gradestenosis. Anterior cerebral arteries: No occlusion or high grade stenosis. Middle cerebral arteries: No occlusion or high grade stenosis. Vertebrobasilar system: No occlusion or high grade stenosis. Posterior cerebral arteries: No occlusion or high grade stenosis. Venous: No dural sinus thrombosis. CTA NECK: Aortic Arch and Branch Vessel Origins: Normal branching anatomy. No highgrade stenosis. Right Carotid Artery: No occlusion, high grade stenosis or dissection. Left Carotid Artery: No occlusion, high grade stenosis or dissection. Right Vertebral Artery: No occlusion, high grade stenosis or dissection. Left Vertebral Artery: No occlusion, high grade stenosis or dissection. Venous structures: The jugular veins enhance normally. NON-VASCULAR FINDINGS: Lungs and Airways: No acute abnormality. Soft tissues: No adenopathy. Bones: Degenerative changes of the cervical spine. IMPRESSION: 1. No acute intracranial findings on noncontrast head CT. 2. No large vessel occlusion, high-grade stenosis, aneurysm or dissectionin the head or neck. A clinically significant result was initiated on 01/16/2025 2:25 PM,Message ID [id number]. ATTESTATION: I, Nikhil Marcus as teaching physician, have reviewed theimages for this case and if necessary edited the report originally createdby Jose Larsen MD. Keanu Gutiérrez MD IMG CT HEAD/NECK Final Result from Last 3 Months Advance Directives For more information, please contact: [phone] (9AM - 5PM [place], Wednesday-Wednesday) * Full Code (Latest Code Status on File) Date Activated Date Inactivated Comments 01/16/2025 11:23 PM Question Answer Comments Code Status Confirmed With: Patient Code Status Communicated To: Inpatient Attending Care Teams Emissions Engineer Relationship Specialty Start Date End Date Anay Govea MD [address] [place] [address] PCP - General Internal Medicine 01/16/25 Additional Source Comments The information contained in this document represents components of the legal health record. It is not the complete legal health record.[facility]
--- OUTSIDE RECORDS SUMMARY | 2025-02-02 18:35 | XMS_ITS | Encounter Summary ---
Author Organization [facility] Address [address] [place] [address] Phone Care Team Providers Care Business Continuity Analyst Name Role Phone Anay Govea MD Primary Care Provid er Encounter Details Date Type Department Care Team (Late st Contact Info) Description 01/16/2025 Procedure Pass [facility], [facility] [address] [place] [address] Social History Tobacco Use Types Packs/Day Years [...] your housing situation today? I have osbaldo sing 01/16/2025 How many times have you move [...] PM EST Sexual Orientation Not on file documented as of this encounter Functional Status * Calculated C-SSRS Risk Score (Lifetime/Recent) Answer Date of Assessment Author No Risk Indicated 01/16/2025 1:39 PM Cari Oden RN * [place] Suicide Severity Rating Scale (Screener/Recent Self-Report) Question Answer Date of Assessment Author 1. Wish to be (Past 1 Month) No 025 1:39 PM Cari Oden RN 2. Non-Specific Active Suici jessica Thoughts (Past 1 Month) No 01/16/2025 1:39 PM Cari Oden RN 6. Suicidal Behavior (Lifetime) No 5 1:39 PM Cari Oden RN documented as of this encounter Plan of Treatment Not on file documented as of this encounter Visit Diagnoses Not on filedocumented in this encounter Care Teams Business Continuity Analyst Relationship Specialty Start Date End Date Anay Govea MD [address] [place] [address] PCP - General Internal Medicine 01/16/25 documented as of this encounter Additional Source Comments The information contained in this document represents components of the legal health record. It is not the complete legal health record.[facility]
--- OUTSIDE RECORDS SUMMARY | 2025-02-02 18:35 | XMS_ITS | Encounter Summary ---
Author Organization [facility] Address [address] [place] [address] Phone Care Team Providers Care Generation Technologist Name Role Phone Anay Govea MD Primary Care Provid er Encounter Details Date Type Department Care Team (Late st Contact Info) Description 01/18/2025 Procedure Pass [facility] [address] [place] [address] Social History Tobacco Use Types Packs/Day Years [...] on file documented as of this encounter Plan of Treatment Not on file documented as of this encounter Visit Diagnoses Not on filedocumented in this encounter Care Teams Generation Technologist Relationship Specialty Start Date End Date Anay Govea MD [address] [place] [address] PCP - General Internal Medicine 01/16/25 documented as of this encounter Additional Source Comments The information contained in this document represents components of the legal health record. It is not the complete legal health record.[facility]
--- OUTSIDE RECORDS SUMMARY | 2025-02-02 18:35 | XMS_ITS | Encounter Summary ---
Author Organization [facility] Address [address] [place] [address] Phone Care Team Providers Care Dough Cutting Machine Operator Name Role Phone Anay Govea MD Primary Care Provid er Encounter Details Date Type Department Care Team (Late st Contact Info) Description 01/16/2025 Procedure Pass [facility], Ct Scan - [facility] [address] [place] [address] Social History Tobacco Use Types Packs/Day Years [...] 01/16/2025 1:39 PM Cari Oden RN * [place] Suicide Severity Rating Scale (Screener/Recent Self-Report) Question [...] on filedocumented in this encounter Care Teams Dough Cutting Machine Operator Relationship Specialty Start Date End Date Anay Govea MD [address] [place] [address] PCP - General Internal Medicine 11/18/25 documented as of this encounter Additional Source Comments The information contained in this document represents components of the legal health record. It is not the complete legal health record.[facility]
--- OUTSIDE RECORDS SUMMARY | 2025-02-02 18:35 | XMS_ITS | Encounter Summary ---
Author Organization [facility] Address [address] [place] [phone] Phone Care Team Providers Care Crane Hoist Or Lift Operator Name Role Phone Anay Govea MD Primary Care Provid er Encounter Details Date Type Department Care Team (Late st Contact Info) Description 01/16/2025 Procedure Pass [facility] [address] [place] [address] Social History Tobacco Use Types Packs/Day Years [...] 01/16/2025 1:39 PM Cari Oden RN * [place] Suicide Severity Rating Scale (Screener/Recent Self-Report) Question [...] on filedocumented in this encounter Care Teams Crane Hoist Or Lift Operator Relationship Specialty Start Date End Date Anay Goeva MD [address] [place] [address] PCP - General Internal Medicine 01/16/25 documented as of this encounter Additional Source Comments The information contained in this document represents components of the legal health record. It is not the complete legal health record.[facility]
--- OUTSIDE RECORDS SUMMARY | 2025-02-02 18:35 | XMS_ITS | Encounter Summary ---
Author Organization [facility] Address [address] [place] [address] Phone Care Team Providers Care Drafter Castings Name Role Phone Anay Govea MD Primary Care Provid er Encounter Details Date Type Department Care Team (Late st Contact Info) Description 01/16/2025 Procedure Pass [facility], Ct Scan - [facility] [address] [place] [address] Social History Tobacco Use Types Packs/Day Years [...] 01/16/2025 1:39 PM Cari Oden RN * [place] Suicide Severity Rating Scale (Screener/Recent Self-Report) Question [...] on filedocumented in this encounter Care Teams Drafter Castings Relationship Specialty Start Date End Date Anay Govea MD [address] [place] [address] PCP - General Internal Medicine 11/18/25 documented as of this encounter Additional Source Comments The information contained in this document represents components of the legal health record. It is not the complete legal health record.[facility]
== END 2025-02-02 15:08 | disposition home or self-care (01) ==
LOC: HO.HKA 14:28
PROVIDERS: PCP Internal Medicine; Visit Provider Internal Medicine Hypertension Specialist
DX: I10 Essential (primary) hypertension (principal)
CPT/HCPCS: 99204

== ENCOUNTER → 2025-02-02 14:27 | Outpatient (BNVA) | payer SELFPAY | PROVIDERS: PCP Internal Medicine; Visit Provider Internal Medicine Hypertension Specialist | DX: I10 Essential (primary) hypertension (principal); E78.5 Hyperlipidemia, unspecified; Z79.899 Other long term (current) drug therapy; Z02.79 Encounter for issue of other medical certificate | CPT/HCPCS: 99202 ==

== ENCOUNTER 2025-02-05 14:13 | Outpatient (REF) | payer SELFPAY ==
[2025-02-05 15:30] LABS: Anion Gap 15 (12-20); Blood Urea Nitrogen 27 mg/dL (9-16); Calcium 9.6 mg/dL (8.4-10.2); Carbon Dioxide 27 mmol/L (22-29); Chloride 99 mmol/L (96-108); Estimated Glomerular Filt Rate > 60; Potassium 3.7 mmol/L (3.3-5.1); Sodium 137 mmol/L (135-145)
--- OUTSIDE RECORDS SUMMARY | 2025-02-05 23:10 | XMS_ITS | Encounter Summary ---
Author Organization [facility] Address [address] [place] [address] Phone Care Team Providers Care Construction Framer Name Role Phone Anay Govea MD Primary Care Provid er Encounter Details Date Type Department Care Team (Late st Contact Info) Description 01/18/2025 Procedure Pass [facility] [address] [place] [address] Social History Tobacco Use Types Packs/Day Years [...] on filedocumented in this encounter Care Teams Construction Framer Relationship Specialty Start Date End Date Anay Govea MD [address] [place] [address] PCP - General Internal Medicine 01/16/25 documented as of this encounter Additional Source Comments The information contained in this document represents components of the legal health record. It is not the complete legal health record.[facility]
--- OUTSIDE RECORDS SUMMARY | 2025-02-05 23:10 | XMS_ITS | Encounter Summary ---
Author Organization [facility] Address [address] [place] [address] Phone Care Team Providers Care Nursing Unit Manager Name Role Phone Anay Govea MD Primary Care Provid er Encounter Details Date Type Department Care Team (Late st Contact Info) Description 01/16/2025 Procedure Pass [facility] [address] [place] [address] Social History Tobacco Use Types Packs/Day Years [...] 01/16/2025 1:39 PM Cari Oden RN * [place] Suicide Severity Rating Scale (Screener/Recent Self-Report) Question [...] on filedocumented in this encounter Care Teams Nursing Unit Manager Relationship Specialty Start Date End Date Anay Govea MD [address] [place] [address] PCP - General Internal Medicine 01/16/25 documented as of this encounter Additional Source Comments The information contained in this document represents components of the legal health record. It is not the complete legal health record.[facility]
--- OUTSIDE RECORDS SUMMARY | 2025-02-05 23:10 | XMS_ITS | Encounter Summary ---
Author Organization [facility] Address [address] [place] [address] Phone Care Team Providers Care Nut Tapper Name Role Phone Anay Govea MD Primary Care Provid er Encounter Details Date Type Department Care Team (Late st Contact Info) Description 01/16/2025 Procedure Pass [facility], Ct Scan - [facility] [address] [place] [address] Social History Tobacco Use Types Packs/Day Years [...] 01/16/2025 1:39 PM Cari Oden RN * [place] Suicide Severity Rating Scale (Screener/Recent Self-Report) Question [...] on filedocumented in this encounter Care Teams Nut Tapper Relationship Specialty Start Date End Date Anay Govea MD [address] [place] [address] PCP - General Internal Medicine 11/18/25 documented as of this encounter Additional Source Comments The information contained in this document represents components of the legal health record. It is not the complete legal health record.[facility]
--- OUTSIDE RECORDS SUMMARY | 2025-02-05 23:10 | XMS_ITS | Encounter Summary ---
Author Organization [facility] Address [address] [place] [address] Phone Care Team Providers Care Foreign Broadcast Specialist Name Role Phone Anay Govea MD Primary Care Provid er Encounter Details Date Type Department Care Team (Late st Contact Info) Description 01/16/2025 Procedure Pass [facility], Ct Scan - [facility] [address] [place] [address] Social History Tobacco Use Types Packs/Day Years [...] 01/16/2025 1:39 PM Cari Oden RN * [place] Suicide Severity Rating Scale (Screener/Recent Self-Report) Question [...] on filedocumented in this encounter Care Teams Foreign Broadcast Specialist Relationship Specialty Start Date End Date Anay Govea MD [address] [place] [address] PCP - General Internal Medicine 11/18/25 documented as of this encounter Additional Source Comments The information contained in this document represents components of the legal health record. It is not the complete legal health record.[facility]
--- OUTSIDE RECORDS SUMMARY | 2025-02-05 23:10 | XMS_ITS | Clinical Summary ---
Author Organization [facility] Address [address] [facility] [address] [place] [address] Phone Care Team Providers Care Embedded Software Programmer Name Role Phone Anay Govea MD Primary [...] well as some numbness and tingling without machine adjuster strength loss. --Patient was noted to be [...] well as some numbness and tingling without machine adjuster strength loss. -Neurological exam at this time [...] Department Care Team Description 01/18/2025 Procedure Pass [facility] Echo Lab [address] [place] [address] 01/16/2025 2:15 PM EST - 01/18/2025 3:30 PM EST Hospital Encounter [facility] Telemetry West [address] [place] [address] Keanu Gutiérrez MD Grachev, Maksim, DO Russo, Margaret A, MD McKenna-Weiss, Eli, MD Discharge Disposition: Home or Self Care 01/16/2025 Procedure Pass [facility] Echo Lab [address] [place] [address] 01/16/2025 Procedure Pass [facility], Mri [address] [address] 01/16/2025 Procedure Pass [facility], Ct Scan [address] [address] 01/16/2025 Procedure Pass [address] [address] from Last 3 Months Social History Tobacco [...] ANTI-CARDIOLIPIN ANTIBODIES STAT 01/16/2025 6:13 PM EST LOBZ-4-[id number] I ANTIBODIES STAT 01/16/2025 6:13 PM EST [...] 4.2 <=21 ng/dL 01/22/2025 10:05 PM EST [facility] Comment: ADDITIONAL INFORMATION Reference range for patients 11 years and older is based on upright A.M. collection from subjects without sodium restrictions. This test was developed and its performance characteristics determined by [facility] in a manner consistent with CLIA requirements. This test has not been cleared or approved by the U.S. Food and Drug Administration. Blood (Blood) 01/18/2025 5:1 0 AM EST 01/18/2025 6:11 AM EST Renee Moya MD LAB BLOOD BKR ORDERABLES Fi nal Result DAVE LARSON) [facility] [address] [place], [place] [address] [phone] * Renin Activity (01/18/2025 5:10 AM EST) Pathologist [facility] Renin Activity, P 3.1 ng/mL/h 025 1:15 PM [address] [facility] Comment: REFERENCE VALUE (Peripheral vein specimen) Na-deplete, upright: Mean: 5.9 Range: 2.9-10.8 Na-replete, upright: Mean: 1.0 Range: < or =0.6-3.0 ADDITIONAL INFORMATION Testing performed by Liquid Chromatography-Tandem Mass Spectrometry (LC-MS/MS). This test was developed and its performance characteristics determined by [facility] in a manner consistent with CLIA requirements. This test has not been cleared or approved by the U.S. Food and Drug Administration. Blood (Blood) 01/18/2025 5:1 0 AM EST 01/18/2025 6:08 AM EST Renee Moya MD LAB BLOOD BKR ORDERABLES Fi nal Result ACOSTA (BEAKER) [facility] [address] [place], [place] [id number] [place] [address] * Basic Metabolic Panel (BMP) (01/18/2025 5:10 AM EST) Only the most recent of2 resultswithin the time period is included. [facility] Sodium 139 136 - 145 mmol/L 01/18/2025 6:55 AM EST [facility] Potassium 3.5 3.4 - 5.1 mmol/L 01/18/2025 6:55 AM EST [facility] Chloride 102 98 - 107 mmol/L 01/18/2025 6:55 AM EST [facility] CO2 25 20 - 31 mmol/L 01/18/2025 6:55 AM [facility] Anion Gap 12 3 - 17 mmol/L 01/18/2025 6:55 AM [facility] BUN 21 6 - 23 mg/dL 01/18/2025 6:55 AM [facility] Creatinine 1.20 0.60 - 1.30 mg/dL 01/18/2025 6:55 AM [facility] eGFR 76 >59 mL/min/1.7 3m2 01/18/2025 6:55 AM [facility] Comment:Estimated glomerular filtration rate calculated using the CKD-EPI refit equation. Glucose 94 70 - 99 mg/dL 01/18/2025 6:55 AM [facility] Calcium 9.4 8.5 - 10.5 mg/dL 01/18/2025 6:55 AM [facility] Blood (Blood) 01/18/2025 5:1 0 AM EST 01/18/2025 6:11 AM EST Renee Moya MD LAB BLOOD BKR ORDERABLES Fi nal Result [address] [address] * US KIDNEY(S) ONLY (01/17/2025 2:45 PM EST) Anatomical Region Laterality Modality Abdomen, Kidney Ultrasound 01/17/2025 2:46 PM EST Impressions 01/17/2025 2:46 PM EST 1. No hydronephrosis. 2. No sonographic evidence for solid renal mass or shadowing stone Narrative 01/17/2025 2:46 PM EST US KIDNEY(S) ONLY Referring clinician's provided indication for this examination in [facility]: Hypertension, primary; accelerated HTN in young person, ?disparate size of kidneys TECHNIQUE: Kidney ultrasound. COMPARISON: None available FINDINGS: Right Kidney: Size: 11.2 cm No stones or hydronephrosis. Left Kidney: Size: 11.6 cm No stones or hydronephrosis. Bladder: Underdistended and therefore not well evaluated. Procedure Note Manny Cloud MD - 01/17/2025 US KIDNEY(S) ONLY Referring clinician's provided indication for this examination in [facility]:Hypertension, primary; accelerated HTN in young person, ?disparate size ofkidneys TECHNIQUE: Kidney ultrasound. COMPARISON: None available FINDINGS: Right Kidney: Size: 11.2 cm No stones or hydronephrosis. Left Kidney: Size: 11.6 cm No stones or hydronephrosis. Bladder: Underdistended and therefore not well evaluated. IMPRESSION: 1. No hydronephrosis. 2. No sonographic evidence for solid renal mass or shadowing stone Renee Moya MD IM US RENAL Final Resul [...] clinician's provided indication for this examination in [facility]: * Transient ischemic attack (TIA) TECHNIQUE: [...] clinician's provided indication for this examination in [facility]: *Transient ischemic attack (TIA) TECHNIQUE: MRI BRAIN WITHOUT CONTRAST Multi-sequence, multi-planar MRI of the brain was performed withoutintravenous contrast. COMPARISON: CT head January 16, 2025 FINDINGS: Brain Parenchyma: No acute or subacute infarct. There is one smallnonspecific focus of susceptibility effect within the right frontal whitematter. No intracranial mass lesion. There are scattered foci of [id number] in the white matter, likely a manifestation [...] 136 - 145 mmol/L 01/17/2025 7:03 AM [facility] Potassium 3.8 3.4 - 5.1 mmol/L 01/17/2025 7:03 AM [facility] Chloride 102 98 - 107 mmol/L 01/17/2025 7:03 AM [facility] CO2 25 20 - 31 mmol/L 01/17/2025 7:03 AM [facility] Anion Gap 12 3 - 17 mmol/L 01/17/2025 7:03 AM [facility] BUN 16 6 - 23 mg/dL 01/17/2025 7:03 AM [facility] Creatinine 0.90 0.60 - 1.30 mg/dL 01/17/2025 7:03 AM [facility] eGFR 108 >59 mL/min/1.7 3m2 01/17/2025 7:03 AM [facility] Comment:Estimated glomerular filtration rate calculated using the CKD-EPI refit equation. Glucose 94 70 - 99 mg/dL 01/17/2025 7:03 AM [facility] Calcium 9.6 8.5 - 10.5 mg/dL 01/17/2025 7:03 AM [facility] AST 21 <40 U/L 01/17/2025 7:03 AM [facility] ALT 21 <50 U/L 01/17/2025 7:03 AM [facility] Alkaline Phosphatase 93 40 - 130 U/L 01/17/2025 7:03 AM [facility] Bilirubin, Total 1.1 0.0 - 1.2 mg/dL 01/17/2025 7:03 AM [facility] Total Protein 7.5 6.4 - 8.3 g/dL 01/17/2025 7:03 AM [facility] Albumin 4.6 3.5 - 5.2 g/dL 01/17/2025 7:03 AM [facility] Globulin 2.9 1.9 - 4.1 g/dL 01/17/2025 7:03 AM [facility] Blood (Blood) Venipuncture / Unknown 01/17/2025 5:21 AM EST 01/17/2025 6:14 AM EST us [facility] LAB BLOOD BKR ORDERABLES Final Result [address] [address] * Phosphorus (01/17/2025 5:21 AM EST) Phosphorus 3.3 2.5 - 4.5 mg/dL 01/17/2025 7:03 AM [facility] Blood (Blood) Venipuncture / Unknown 01/17/2025 5:21 AM EST 01/17/2025 6:14 AM EST us [employer] DO LAB BLOOD BKR ORDERABLES Final Result [address] [address] * Magnesium (01/17/2025 5:21 AM EST) Only the most recent of2 resultswithin the time period is included. Magnesium 2.3 1.7 - 2.6 mg/dL 01/17/2025 7:03 AM [facility] Blood (Blood) Venipuncture / Unknown 01/17/2025 5:21 AM EST 01/17/2025 6:14 AM EST us James Caraballofaribamar LAB BLOOD BKR ORDERABLES Final Result [facility] [address] [place] [address] * CBC and Differential (01/17/2025 5:20 AM EST) Only the most recent of2 resultswithin the time period is included. WBC 6.28 4.00 - 11.00 K/uL 01/17/2025 6:32 AM [facility] RBC 5.10 4.50 - 5.90 M/uL 01/17/2025 6:32 AM [facility] Hemoglobin 15.3 13.5 - 17.5 g/dL 01/17/2025 6:32 AM [facility] Hematocrit 44.7 41.0 - 53.0 % 01/17/2025 6:32 AM [facility] MCV 87.6 80.0 - 100.0 fL 01/17/2025 6:32 AM [facility] MCH 30.0 27.0 - 31.0 pg 01/17/2025 6:32 AM [facility] MCHC 34.2 32.0 - 36.0 g/dL 01/17/2025 6:32 AM [facility] MPV 11.4 8.4 - 12.0 fL 01/17/2025 6:32 AM [facility] RDW-CV 12.6 11.5 - 14.5 % 01/17/2025 6:32 AM [facility] PLT 209 150 - 450 K/uL 01/17/2025 6:32 AM [facility] Neutrophils 63.3 % 01/17/2025 6:32 AM [facility] Lymphocytes 24.7 % 01/17/2025 6:32 AM [facility] Monocytes 10.4 % 01/17/2025 6:32 AM [facility] Eosinophils 1.0 % 01/17/2025 6:32 AM [facility] Basophils 0.3 % 01/17/2025 6:32 AM [facility] Imm Grans 0.3 % 01/17/2025 6:32 AM [facility] NRBC 0.0 <=0.0 /100 WBCs 01/17/2025 6:32 AM [facility] Absolute Neutrophils 3.98 1.92 - 7.60 K/uL 01/17/2025 6:32 AM [facility] Absolute Lymphocytes 1.55 0.72 - 4.10 K/uL 01/17/2025 6:32 AM [facility] Absolute Monocytes 0.65 0.16 - 1.10 K/uL 01/17/2025 6:32 AM [facility] Absolute Eosinophils 0.06 0.00 - 0.50 K/uL 01/17/2025 6:32 AM [facility] Absolute Basophils 0.02 0.00 - 0.15 K/uL 01/17/2025 6:32 AM [facility] Absolute Imm Grans 0.02 0.00 - 0.09 K/uL 01/17/2025 6:32 AM [facility] Absolute NRBC 0.00 <=0.00 K cells/uL 01/17/2025 6:32 AM [facility] Absolute Neutrophils 3.98 1.92 - 7.60 K/uL 01/17/2025 6:32 AM [facility] Comment:Automated cell count . Manual ANC may differ if performed. Diff Type Auto 01/17/2025 6:32 AM [facility] Blood (Blood) Venipuncture / Unknown 01/17/2025 5:20 AM EST 01/17/2025 6:14 AM EST us James Brady DO LAB BLOOD BKR ORDERABLES Final Result [facility] [address] [place] [address] * Lipoprotein(a) (01/16/2025 6:14 PM EST) Blood (Blood) Venipuncture / Unknown 01/16/2025 6:14 PM EST 01/16/2025 6:16 PM EST us James Brady DO LAB BLOOD BKR ORDERABLES Final Result [facility] (BEAKER) * CCP Antibody, IgG (01/16/2025 6:14 PM EST) CCP Antibody, IgG <8 0 - 16 U/mL 01/18/2025 12:41 PM EST [facility] Blood (Blood) Venipuncture / Unknown 01/16/2025 6:14 PM EST 01/16/2025 6:16 PM EST us James Brady DO LAB BLOOD BKR ORDERABLES Final Result Performing Organization Address City/[facility]/ZIP Co de Phone Number [address] [address] * Erythrocyte Sedimentation Rate (ESR) (01/16/2025 6:14 PM EST) ESR 9 0 - 15 mm/h 01/16/2025 6:32 PM EST [facility] Blood (Blood) Venipuncture / Unknown 01/16/2025 6:14 PM EST 01/16/2025 6:17 PM EST us James Brady DO LAB BLOOD BKR ORDERABLES Final Result Performing Organization Address City/[facility]/ZIP Co de Phone Number [address] [address] * Rheumatoid Factor (01/16/2025 6:14 PM EST) Rheumatoid Factor (RF) <10 <=14 IU/ml 01/16/2025 6:48 PM EST [facility] Blood (Blood) Venipuncture / Unknown 01/16/2025 6:14 PM EST 01/16/2025 6:17 PM EST us James Brady DO LAB BLOOD BKR ORDERABLES Final Result Performing Organization Address [facility] Co de Phone Number [address] [address] * C-Reactive Protein (CRP) (01/16/2025 6:14 PM EST) C Reactive Protein <3.0 <10.0 mg/L 01/16/2025 6:48 PM EST [facility] Comment:NOTE: This reference range is for the evaluation of inflammation. Order CRP, High Sensitivity for cardiac risk status evaluation. Blood (Blood) Venipuncture / Unknown 01/16/2025 6:14 PM EST 01/16/2025 6:17 PM EST [employer] DO LAB BLOOD BKR ORDERABLES Final Result Performing Organization Address [facility] Co de Phone Number [address] [address] * PTT (Special Coagulation) (01/16/2025 6:13 PM EST) PTT 30.3 24.0 - 37.5 sec 01/18/2025 9:50 AM EST [facility] Blood (Blood) Venipuncture / Unknown 01/16/2025 6:13 PM EST 01/16/2025 6:16 PM EST James [employer] DO LAB BLOOD BKR ORDERABLES Final Result Performing Organization Address [facility]/ZIP Co de Phone Number [address] [address] * PT/INR (Special Coagulation) (01/16/2025 6:13 PM EST) PT 12.8 10.0 - 13.0 sec 01/18/2025 10:05 AM EST [facility] INR 1.1 0.9 - 1.1 01/18/2025 10:05 AM EST [facility] Blood (Blood) Venipuncture / Unknown 01/16/2025 6:13 PM EST 01/16/2025 6:16 PM EST us James Grachev DO LAB BLOOD BKR ORDERABLES Final Result [address] [address] * Special Coagulation Interpretation (01/16/2025 6:13 PM EST) [facility] Special Coagulation Interpretation 1. The PT and PTT are within the reference ranges. 2. No evidence of antiphospholipid antibodies. The DRVVT and PTT-LA screens are negative for a lupus anticoagulant. The IgG/IgM anti-beta2 glycoprotein I and IgG/IgM anticardiolipin antibodies are NOT elevated. 01/22/2025 4:20 PM EST [facility] Comment: . Blood (Blood) Venipuncture / Unknown 01/16/2025 6:13 PM EST 01/16/2025 6:16 PM EST us James Grachev DO LAB BLOOD BKR ORDERABLES Final Result Performing Organization Address [facility] Co de Phone Number [address] [address] * Nsgm-0-Hertpzkhmdkt I Antibodies (01/16/2025 6:13 PM EST) [facility] Beta 2 GP1 Ab IgG, S <9.4 <15.0 (Negative) SGU 01/19/2025 11:43 AM EST [facility] Beta 2 GP1 Ab IgM, S <9.4 <15.0 (Negative) SMU 01/19/2025 11:43 AM EST [facility] Blood (Blood) Venipuncture / Unknown 01/16/2025 6:13 PM EST 01/16/2025 6:17 PM EST us James Grachev DO LAB BLOOD BKR ORDERABLES Final Result DAVE LARSON) [facility] [address] [place] [address], [facility] [phone] * Lupus Anticoagulant Panel (01/16/2025 6:13 PM EST) [facility] PTT-LA Screen Negative for a lupus anticoagulant Negative for a lupus anticoagulant 5 10:07 AM EST [facility] DRVVT Screen Negative for a lupus anticoagulant Negative for a lupus anticoagulant 5 10:07 AM EST [facility] Comment:This result was prev iously suppressed from the chart. Blood (Blood) Venipuncture / Unknown 01/16/2025 6:13 PM EST 01/16/2025 6:16 PM EST us James [employer] DO LAB BLOOD BKR ORDERABLES Final Result [address] [address] * Anti-Cardiolipin Antibodies (01/16/2025 6:13 PM EST) [facility] Phospholipid Ab IgM, S <9.4 <15.0 (Negative) MPL 01/19/2025 9:47 PM EST [facility] Phospholipid Ab IgG, S <9.4 <15.0 (Negative) GPL 01/19/2025 9:47 PM EST [facility] Blood (Blood) Venipuncture / Unknown 01/16/2025 6:13 PM EST 01/16/2025 6:17 PM EST us James [employer] DO LAB BLOOD BKR ORDERABLES Final Result DAVE LARSON) [place] [id number] [place] [address], [facility] [phone] * Anti-Neutrophil Cytoplasmic Antibody (ANCA) (01/16/2025 6:13 PM EST) [facility] Myeloperoxidase Ab, S <0.2 <0.4 (Negative ) U 01/18/2025 11:11 AM EST [facility] Proteinase 3 Ab (PR3), S <0.2 <0.4 (Negative ) U 01/18/2025 11:11 AM EST [facility] Blood (Blood) Venipuncture / Unknown 01/16/2025 6:13 PM EST 01/16/2025 6:17 PM EST us [employer] DO LAB BLOOD BKR ORDERABLES Final Result ACOSTA (BEAKER) [facility] [address] [phone] * D-Dimer (01/16/2025 6:13 PM EST) D-Dimer 483 <500 ng/mL FEU 01/16/2025 6:38 PM EST [facility] Comment:A negative D-dimer r esult (at a cut off of 500 ng/mL FEU) when combined with a clinical assessment of low pretest probability has been shown to have a high negative predictive value for DVT or PE. Clinical correlation is required. Blood (Blood) Venipuncture / Unknown 01/16/2025 6:13 PM EST 01/16/2025 6:17 PM EST us [facility] DO LAB BLOOD BKR ORDERABLES Final Result [address] [address] * Homocysteine (01/16/2025 6:13 PM EST) Homocysteine, Total 8.7 0.0 - 14.2 umol/L 01/18/2025 11:40 AM EST [facility] Blood (Blood) Venipuncture / Unknown 01/16/2025 6:13 PM EST 01/16/2025 6:16 PM EST [facility] DO LAB BLOOD BKR ORDERABLES Final Result [facility] [address] [place] [address] * (ABNORMAL) Urinalysis with Reflex to Urine Culture (01/16/2025 5:09 PM EST) Color Yellow Yellow 01/16/2025 5:37 PM EST [facility] Clarity Clear Clear 01/16/2025 5:37 PM [facility] Glucose Negative Negative 01/16/2025 5:37 PM [facility] Bilirubin Urine Negative Negative 5:37 PM [facility] Ketone Urine 1+(A) Negative 01/16/2025 5:37 PM [facility] Specific [place] <=1.005 1.001 - 1.035 01/16/2025 5:37 PM [facility] Blood Negative Negative 01/16/2025 5:37 PM [facility] pH 6.5 5.0 - 8.0 01/16/2025 5:37 PM [facility] Protein Negative Negative 01/16/2025 5:37 PM [facility] Nitrites Negative Negative 01/16/2025 5:37 PM [facility] Leukocyte Esterase Negative Negative 01/16/2025 5:37 PM [facility] Urobilinogen Negative Negative 01/16/2025 5:37 PM [facility] Urine (Urine, Voided) Non-Blood Collection / Unknown 01/16/2025 5:09 PM EST 01/16/2025 5:36 PM EST us Keanu Gutiérrez MD LAB URINE ORDERABLES Final Resu lt [facility] [address] [place] [address] * Toxicology Screen, Urine (01/16/2025 5:09 PM EST) Amphetamines, Urine Negative Negative 01/16/2025 5:45 PM EST [facility] Benzodiazepine , Urine Negative Negative 01/16/2025 5:45 PM [facility] Cocaine Metabolite, Urine Negative Negative 01/16/2025 5:45 PM [facility] Opiates, Urine Negative Negative 01/16/2025 5:45 PM EST [facility] Oxycodone, Urine Negative Negative 01/16/2025 5:45 PM EST [facility] Fentanyl, Urine Negative Negative 01/16/2025 5:45 PM EST [facility] Creatinine, Urine 50 20 - 300 mg/dL 01/16/2025 5:45 PM EST [facility] Urine (Urine, Voided) Non-Blood Collection / Unknown 01/16/2025 5:09 PM EST 01/16/2025 5:25 PM EST Narrative [facility] - 01/16/2025 5:45 PM EST This screening [...] ORDERABLES Final Resu lt Performing Organization Address City/[facility] Co de Phone Number [address] [address] * ECG 12-LEAD (01/16/2025 2:44 PM EST) Ventricular Rate EKG/MIN 98 BPM [facility] Atrial Rate 98 BPM [facility] MA Interval 128 ms [facility] QRS Duration 92 ms [facility] QT Interval 372 ms [facility] QTC Interval 474 ms [facility] P [place] 31 degrees [facility] R Wave [place] 39 degrees [facility] T Wave [place] 10 degrees [facility] 01/16/2025 2:44 PM EST 01/17/2025 12:58 PM EST Narrative [facility] - 01/17/2025 12:58 PM EST Normal sinus rhythm Normal ECG No previous ECGs available Confirmed by Jackson Ledesma ([id number]) on 01/17/2025 12:58:50 PM Keanu Gutiérrez MD ECG ORDERABLES Final Result Performing Organization Address City/[facility] Co de Phone Number [email or web address] * (ABNORMAL) POCT Glucose (01/16/2025 2:37 PM EST) Glucose 109(H) 70 - 99 mg/dL 01/16/2025 2:42 PM EST [facility] Blood (Blood) 01/16/2025 2:3 7 PM EST 01/16/2025 2:42 PM EST us Keanu Gutiérrez MD LAB POCT DOCKED DEVICE UNSOLICT ED RESULTS Final Result Performing Organization Address [facility] Co de Phone Number [address] [address] * Ethanol, Blood (01/16/2025 2:33 PM EST) Pathologist [facility] Ethanol <10 Negative; <11 mg/dL 01/16/2025 3:51 PM EST [facility] Blood (Blood) Venipuncture / Unknown 01/16/2025 2:33 PM EST 01/16/2025 3:28 PM EST us Keanu Gutiérrez MD LAB BLOOD BKR ORDERABLES Final Result Performing Organization Address [facility] Co de Phone Number [address] [address] * Thyroid Stimulating Hormone (TSH), with Reflex (01/16/2025 2:33 PM EST) Pathologist [facility] TSH 1.28 0.40 - 5.00 uIU/mL 01/16/2025 3:51 PM EST [facility] Blood (Blood) Venipuncture / Unknown 01/16/2025 2:33 PM EST 01/16/2025 3:28 PM EST us Keanu Gutiérrez MD LAB BLOOD BKR ORDERABLES Final Result Performing Organization Address [facility] Co de Phone Number [address] [address] * Hepatic Panel (LFTs) (01/16/2025 2:33 PM EST) AST 25 <40 U/L 01/16/2025 3:51 PM [facility] ALT 23 <50 U/L 01/16/2025 3:51 PM [facility] Alkaline Phosphatase 96 40 - 130 U/L 01/16/2025 3:51 PM [facility] Bilirubin, Total 0.7 0.0 - 1.2 mg/dL 01/16/2025 3:51 PM [facility] Bilirubin, Direct 0.2 0.0 - 0.3 mg/dL 01/16/2025 3:51 PM [facility] Total Protein 7.5 6.4 - 8.3 g/dL 01/16/2025 3:51 PM [facility] Albumin 4.5 3.5 - 5.2 g/dL 01/16/2025 3:51 PM [facility] Globulin 3.0 1.9 - 4.1 g/dL 01/16/2025 3:51 PM [facility] Blood (Blood) Venipuncture / Unknown 01/16/2025 2:33 PM EST 01/16/2025 3:28 PM EST us Keanu Gutiérrez MD LAB BLOOD BKR ORDERABLES Final Result Performing Organization Address City/State/[facility] Co de Phone Number [address] [address] * PT-INR (01/16/2025 2:33 PM EST) PT 12.9 10.0 - 13.0 sec 01/16/2025 3:10 PM [facility] INR 1.0 0.9 - 1.1 01/16/2025 3:10 PM [facility] Comment:Therapeutic Range 2. 0 - 3.5 Blood (Blood) Venipuncture / Unknown 01/16/2025 2:33 PM EST 01/16/2025 3:06 PM EST us Keanu Gutiérrez MD LAB BLOOD BKR ORDERABLES Final Result [address] [address] * Troponin (01/16/2025 2:33 PM EST) [facility] Troponin-T HS Gen5 9 0 - 14 ng/L 01/16/2025 3:08 PM EST [facility] Blood (Blood) Venipuncture / Unknown 01/16/2025 2:33 PM EST 01/16/2025 2:56 PM EST Keanu Gutiérrez MD LAB BLOOD BKR ORDERABLES Final Result Performing Organization Address [facility] Co de Phone Number [address] [address] * Hemoglobin A1c (01/16/2025 2:33 PM EST) [facility] Hemoglobin A1c 5.6 4.3 - 5.6 % 01/16/2025 4:44 PM EST [facility] Calculated Mean Blood Glucose 114 mg/dL 01/16/2025 4:44 PM [facility] Comment:There is no establis hed normal [...] BKR ORDERABLES Final Result Performing Organization Address City/[facility]/ZIP Co de Phone Number [address] [address] * (ABNORMAL) Lipid Panel (01/16/2025 2:33 PM EST) [facility] Cholesterol 194 <200 mg/dL 01/16/2025 3:51 PM EST [facility] HDL 40 >=40 mg/dL 01/16/2025 3:51 PM EST [facility] Calculated LDL 108 <130 mg/dL 01/16/2025 3:51 PM EST [facility] Comment:LDL is calculated us ing the Raymundo-NIH equation (RITCHIE Cardiol. 2019June 29;5(5):540-548). Non-HDL Cholesterol 154 mg/dL 01/16/2025 3:51 PM EST [facility] Comment:Guidelines suggest a non-HDL cholesterol goal 30 mg/dL higher than the patient-specific LDL cholesterol goal. Cardiac Risk Ratio 4.9 0.0 - 5.0 2024 3:51 PM EST [facility] Triglycerides 266(H) <=150 mg/dL 01/16/2025 3:51 PM EST [facility] Blood (Blood) Venipuncture / Unknown 01/16/2025 2:33 PM EST 01/16/2025 3:28 PM EST us Keanu Gutiérrez MD LAB BLOOD BKR ORDERABLES Final Result [address] [address] * CT ANGIO HEAD (CODE STROKE) W CONTRAST, CT ANGIO NECK W CONTRAST (01/16/2025 2:09 PM EST) [facility] IMG PROBATION COUNSELOR COMMENT No acute intracranial findings on noncontrast head CT. No large vessel occlusion, high-grade stenosis, aneurysm or dissection in the head or neck. [facility] Anatomical Region Laterality Modality Neck Computed Tomogra phy 01/16/2025 2:12 PM EST Impressions 01/16/2025 2:49 PM EST 1. No acute intracranial findings on noncontrast head CT. 2. No large vessel occlusion, high-grade stenosis, aneurysm or dissection in the head or neck. A clinically significant result was initiated on 01/16/2025 2:25 PM, Message ID [id number]. ATTESTATION: I, Nikhil Marcus as teaching physician, [...] was initiated on 01/16/2025 2:25 PM,Message ID [id number]. ATTESTATION: Nikhil Puente as teaching physician, have reviewed theimages for this case and if necessary edited the report originally createdby Jose Larsen MD. Keanu Gutiérrez MD IMG CT HEAD/NECK Final Result * CT HEAD (CODE STROKE) WITHOUT CONTRAST (01/16/2025 2:09 PM EST) MGB IMG PROBATION COUNSELOR COMMENT No acute intracranial findings on noncontrast head CT. No large vessel occlusion, high-grade stenosis, aneurysm or dissection in the head or neck. [facility] Anatomical Region Laterality Modality Head Computed Tomogra phy 01/16/2025 2:12 PM EST Impressions 01/16/2025 2:49 PM EST 1. No acute intracranial findings on noncontrast head CT. 2. No large vessel occlusion, high-grade stenosis, aneurysm or dissection in the head or neck. A clinically significant result was initiated on 01/16/2025 2:25 PM, Message ID [id number]. ATTESTATION: Nikhil Puente as teaching physician, have [...] in Epic: *Neuro deficit, acute, stroke suspected; Bobyb, right hand numbness, right lipnumbness, BP 240's [...] was initiated on 01/16/2025 2:25 PM,Message ID [id number]. ATTESTATION: I, Nikhil Marcus as teaching physician, have reviewed theimages for this case and if necessary edited the report originally createdby Jose Larsen MD. Keanu Gutiérrez MD IMG CT HEAD/NECK Final Result from Last 3 Months Advance Directives For more information, please contact: [phone] (9AM - 5PM [place], Wednesday-Wednesday) * Full Code (Latest Code Status on File) Date Activated Date Inactivated Comments 01/16/2025 11:23 PM Question Answer Comments Code Status Confirmed With: Patient Code Status Communicated To: Inpatient Attending Care Teams Embedded Software Programmer Relationship Specialty Start Date End Date Anay Govea MD [address] [place] [address] PCP - General Internal Medicine 01/16/25 Additional Source Comments The information contained in this document represents components of the legal health record. It is not the complete legal health record.[facility]
--- OUTSIDE RECORDS SUMMARY | 2025-02-05 23:10 | XMS_ITS | Encounter Summary ---
Author Organization [facility] Address [address] [place] [phone] Phone Care Team Providers Care Beef Lugger Name Role Phone Anay Govea MD Primary Care Provid er Encounter Details Date Type Department Care Team (Late st Contact Info) Description 01/16/2025 Procedure Pass [facility], [facility] [address] [place] [address] Social History Tobacco Use Types Packs/Day Years [...] 01/16/2025 1:39 PM Cari Oden RN * [place] Suicide Severity Rating Scale (Screener/Recent Self-Report) Question [...] on filedocumented in this encounter Care Teams Beef Lugger Relationship Specialty Start Date End Date Anay Govea MD [address] [place] [address] PCP - General Internal Medicine 01/16/25 documented as of this encounter Additional Source Comments The information contained in this document represents components of the legal health record. It is not the complete legal health record.[facility]
== END 2025-02-05 14:14 | disposition home or self-care (01) ==
LOC: HO.LAB 14:13
PROVIDERS: Absent Provider Internal Medicine Hypertension Specialist; PCP Internal Medicine; Visit Provider Internal Medicine
DX: I10 Essential (primary) hypertension (principal)
CPT/HCPCS: 36415; 80048

== ENCOUNTER 2025-02-08 14:41 | Outpatient (AMB) | payer SELFPAY ==
--- OUTSIDE RECORDS SUMMARY | 2025-02-07 01:13 | XMS_ITS | Encounter Summary ---
Author Organization [facility] Address [address] [place] [address] Phone Care Team Providers Care Disease Control Inspector Name Role Phone Pcp, Unknown Primary Care Provider Unavailabl e Reason for Visit * Reason Comments Toxic Inhalation Encounter Details Date Type Department Care Team ([facility] st Contact Info) Description 02/07/2025 1:13 AM EST - 02/07/2025 2:43 AM EST Emergency [facility] [address] [place] [address] Isadora Brizuela MD [address] [place] [address] [email or web address] Discharge Disposition: Home or Self Care Social History Tobacco Use Types Packs/Day Years [...] as food, clothing, or medical care? No 02/07/2025 In the past 12 months have y ou been in a relationship with a person who hurts, threatens, or tries to control you? No 02/07/2025 Are you denied basic needs s uch as food, clothing, or medical care? No 02/07/2025 In the past 12 months have y ou been in a relationship with a person who hurts, threatens, or tries to control you? No 02/07/2025 Sex and Gender Information Value Date Recorded Sex Assigned at Male 01/16/2025 1:39 PM EST Legal Sex Male 1:20 PM EST Gender Identity Male 01/16/2025 1:39 PM EST Sexual Orientation Straight 02/07/2025 1: 22 AM EST documented as of this encounter Last Filed Vital Signs Vital Sign Reading Time Taken Comments Blood Pressure 127/78 02/07/2025 2:42 AM EST Pulse 68 02/07/2025 2:42 AM EST Temperature 36.6 C (97.9 F) 02/07/2025 1:14 AM EST Respiratory Rate 18 02/07/2025 2:42 AM EST Oxygen Saturation 96% 02/07/2025 2:42 AM EST Inhaled Oxygen Concentration - - Weight - - Height - - Body Mass Index - - documented in this encounter Functional Status * Calculated C-SSRS Risk Score (Lifetime/Recent) Answer Date of Assessment Author No Risk Indicated 02/07/2025 1:15 AM EST Opal Colmenares, RN * [place] Suicide Severity Rating Scale (Screener/Recent Self-Report) Question Answer Date of Assessment Author 1. Wish to be (Past 1 Month) No 02/07/2025 1:15 AM EST Katarina Thomas RN 2. Non-Specific Active Suicidal Thoughts (Past 1 Month) No 02/07/2025 1:15 AM EST Katarina Thomas RN 6. Suicidal Behavior (Lifetime) No 02/07/2025 1:15 AM Katarina Lei RN documented as of this encounter Discharge Instructions * Discharge Instructions* Isadora Brizuela MD - 02/07/2025 2:26 AM EST You were seen in the emergency department with concern for a carbon monoxide exposure. Your carbon monoxide level was within normal limits today and your viral swab was negative. Please follow-up with your primary care physician to have your symptoms rechecked and do not hesitate to return to the emergency department at any time for any new or worsening symptoms documented in this encounter Medications at Time of Discharge aspirin 81 MG EC tablet Take 1 tablet (81 mg total) by mouth daily. 30 tablet 1 01/19/2025 03/20/2025 chlorthalidone (HYGROTON) 25 MG tablet Take 1 tablet (25 mg total) by mouth daily. 30 tablet 1 01/19/2025 03/20/2025 labetaloL (TRANDATE) 200 MG tablet Take 1 tablet (200 mg total) by mouth 2 (two) times a day. 60 tablet 1 01/18/2025 03/19/2025 lisinopril (PRINIVIL,ZESTRIL ) 40 MG tablet Take 40 mg by mouth daily. NIFEdipine (ADALAT CC) 60 MG 24 hr tablet Take 1 tablet (60 mg total) by mouth daily. 30 tablet 1 01/19/2025 03/20/2025 rosuvastatin (CRESTOR) 40 MG tablet Take 1 tablet (40 mg total) by mouth every evening. 30 tablet 1 01/18/2025 03/19/2025 clopidogrel (PLAVIX) 75 mg tablet Take 1 tablet (75 mg total) by mouth daily for 19 doses. 19 tablet 01/19/2025 02/07/2025 documented as of this encounter ED Notes * Khushboo Harrison RN - 02/07/2025 2:43 AM EST ED Discharge Nursing Note Pt is a/o, resp even and unlabored, NAD. Pt verbalizes improvement in symptoms. D/C paperwork givenand reviewed. Discussed follow up and s/s that would indicate need to return to ED. Pt verbalized understanding. No further questions at this time. * Khushboo Harrison RN - 02/07/2025 2:08 AM EST ED Nursing Progress Note Nonrebreather removed d/t normal carbon monoxide level * Khushboo Harrison RN - 02/07/2025 1:25 AM EST ED Nursing Progress Note Pt placed on nonrebreather per provider * Opal Thomas RN - 02/07/2025 1:13 AM EST Pt presents to the ED with family for carbon monoxide exposure. Reports smoke in the house. Denies symptoms. Patient aox4, in nad. * Isadora Brizuela MD - 02/07/2025 1:13 AM EST Chief Complaint Chief Complaint Patient presents with Toxic Inhalation History of Present Illness The patient, Solitario Joseph,is a 44 y.o. male who presents for evaluation of Toxic Inhalation The patient reports for evaluation of suspected carbon monoxide exposure. Patient reports the furnace in their home has been giving off foul smell and all of his children are sick with congestion andvomiting. He does not currently have any symptoms. He does have a carbon monoxide monitor in the home that did not fire. Unless otherwise specified, I have reviewed and agree with the triage and nursing notes. ROS A ten point review of systems was negative except what was noted in the HPI. Review of Systems Past Medical History Past Medical History: Diagnosis Date Hypertensive disorder Past Surgical History No past surgical history on file. Home Medications Prior to Admission medications Medication Sig aspirin 81 MG EC tablet 81 mg, Oral, Daily chlorthalidone (HYGROTON) 25 MG tablet 25 mg, Oral, Daily clopidogrel (PLAVIX) 75 mg tablet 75 mg, Oral, Daily labetaloL (TRANDATE) 200 MG tablet 200 mg, Oral, 2 times daily lisinopril (PRINIVIL,ZESTRIL) 40 MG tablet 40 mg, Daily NIFEdipine (ADALAT CC) 60 MG 24 hr tablet 60 mg, Oral, Daily rosuvastatin (CRESTOR) 40 MG tablet 40 mg, Oral, Every evening Allergies No Known Allergies Social and Family History Social History Tobacco Use Smoking status: Not on file Smokeless tobacco: Not on file Substance Use Topics Alcohol use: Not on file Social History Substance and Sexual Activity Drug Use Not on file No family history on file. Physical Exam Vital Signs: ED Triage Vitals [02/07/25 0114] Encounter Vitals Group BP (!) 156/105 Girls Systolic BP Percentile Girls Diastolic BP Percentile Boys Systolic BP Percentile Boys Diastolic BP Percentile Heart Rate 87 Respiratory Rate 18 Temperature 36.6 ??C (97.9 ??F) Temp src SpO2 98 % Weight Height Head Circumference Peak Flow Pain Score Pain Loc Pain Education Exclude from Growth Chart Physical Exam Vitals and nursing note reviewed. Constitutional: General: He is not in acute distress. HENT: Head: Normocephalic and atraumatic. Eyes: Conjunctiva/sclera: Conjunctivae normal. Cardiovascular: Rate and Rhythm: Normal rate and regular rhythm. Pulmonary: Effort: Pulmonary effort is normal. No respiratory distress. Breath sounds: Normal breath sounds. Musculoskeletal: General: No deformity or signs of injury. Cervical back: Normal range of motion. Skin: General: Skin is warm and dry. Neurological: General: No focal deficit present. Mental Status: He is alert and oriented to person, place, and time. Psychiatric: Mood and Affect: Mood normal. Behavior: Behavior normal. Laboratory Testing Results for orders placed or performed during the hospital encounter of 02/07/25 SARS-CoV-2, INFLUENZA A/B, PCR Specimen: Nasopharynx, Bilateral; Swab Result Value Ref Range SARS-CoV-2 RNA PCR Not Detected Not Detected Influenza A PCR Not Detected Not Detected Influenza B PCR Not Detected Not Detected Carbon Monoxide, Whole Blood Specimen: Blood, Venous Result Value Ref Range Carboxyhemoglobin 1.6 <=2.0 % Symptomatic Respiratory Virus Testing Panel (ED/IP) Specimen: Nasopharynx, Bilateral; Swab Result Value Ref Range SARS Comment Radiology Testing No orders to display MDM Assessment and Plan: Patient presents with family members concerning for carbon monoxide toxicity after furnace admitting and odd smell. Patient asymptomatic. Multiple family members with GI symptoms, vomiting and diarrhea in the ED but no headache or mental status changes. Carbon monoxide level is within normal limitstoday. Stable for discharge. Clinical Impressions as of 02/07/25338 Encounter for medical screening examination Critical Care Time: 0 minutes Clinical Impression Diagnosis Description Comment Final diagnosis Encounter for medical screening examination Encounter for medical screening examination -- Disposition: Home Isadora Brizuela MD 02/07/25348 documented in this encounter Plan of Treatment Not on file documented as of this encounter Procedures Procedure Name Priority Date/Time Associated Diagnosis Comments CARBON MONOXIDE, WHOLE BLOOD STAT 02/07/2025 1:43 AM EST SARS-COV-2, INFLUENZA A/B, PCR NAT STAT 02/07/2025 1:27 AM EST COVID PANDEMIC RESPIRATORY VIRAL ORDER (PRO) STAT 02/07/2025 1:27 AM EST documented in this encounter Results * Carbon Monoxide, Whole Blood (02/07/2025 1:43 AM EST) Carboxyhemoglobin 1.6 <=2.0 % 025 2:06 AM EST [facility] Blood (Blood, Venous) Venipuncture / Unknown 02/07/2025 1:43 AM EST 02/07/2025 2:01 AM EST us Isadora Brizuela MD LAB BLOOD BKR ORDERABLES Fin al Result [address] [address] * SARS-CoV-2, INFLUENZA A/B, PCR (02/07/2025 1:27 AM EST) [facility] SARS-CoV-2 RNA PCR Not Detected Not Detected 02/07/2025 2:17 AM [facility] Influenza A PCR Not Detected Not Detected 02/07/2025 2:17 AM [facility] Influenza B PCR Not Detected Not Detected 02/07/2025 2:17 AM [facility] Swab (Nasopharynx, Bilateral) Non-Blood Collection / Unknown 02/07/2025 1:27 AM EST 02/07/2025 1:32 AM EST Isadora Brizuela MD LAB GENERAL ORDERABLES Final Result Performing Organization Address [facility] Co de Phone Number [address] [address] * Symptomatic Respiratory Virus Testing Panel (ED/IP) (02/07/2025 1:27 AM EST) [facility] SARS Comment 02/07/2025 1:45 AM [facility] Comment:This test automatica lly orders a COVID-19 PCR and may add Flu, RSV, or other viral tests based on patient clinical factors and site protocols. Results will appear below and separately in chart review when available. Swab (Nasopharynx, Bilateral) Non-Blood Collection / Unknown 02/07/2025 1:27 AM EST 02/07/2025 1:32 AM EST Isadora Brizuela MD LAB GENERAL ORDERABLES Final Result Performing Organization Address [facility]/ZIP Co de Phone Number [address] [address] documented in this encounter Visit Diagnoses Diagnosis Encounter for medical screening examination- Primary documented in this encounter Additional Health Concerns Infection Onset Date Last Indicated Resolved Time Resp-Risk 02/07/2025 02/07/2025 documented as of this encounter Care Teams Disease Control Inspector Relationship Specialty Start Date End Date Pcp, Unknown PCP - General 02/07/25 documented as of this encounter Additional Source Comments The information contained in this document represents components of the legal health record. It is not the complete legal health record.[facility]
[2025-02-08 14:45] VITALS: BP 126/74; PULSE 65; O2SAT 99; BMI 33.4
--- NOTE | 2025-02-08 14:45 | HO.NEPHOV_ITS ---
Vital Signs 02/08/25 14:45 Height 5 ft 9 in Weight 226 lb BMI 33.4 BP 126/74 Blood Pressure Location Lt brachial Position Sitting Pulse 65 Pulse Source Pulse Oximeter Pulse Oximetry (%) 99 Oxygen Delivery Method Room Air Intake Visit Reasons: 1wk f/u w/labs Gas Specialist Required: No Accompanied by: Self / Same As Patient Allergies No Known Allergies Allergy (Verified 02/08/25 14:46) Medication List - Last Reconciled 02/08/25 by Tuan Oro MD aspirin 81 mg PO DAILY chlorthalidone 25 mg PO DAILY clopidogrel 75 mg PO DAILY labetalol 200 mg PO BID lisinopril 40 mg PO DAILY 3 months nifedipine ER 60 mg PO DAILY rosuvastatin 40 mg PO QPM HPI Comments Details: History of Present Illness The patient is a 44 year old male presenting for follow-up of hypertension. He reports home blood pressure readings ranging from 120/80 mmHg to a high of 141 mmHg in the mornings, with the lowest readings not dropping to 90 mmHg. He reports occasional lightheadedness upon standing and frequent urination, which he attributes to taking chlorthalidone. His medication regimen for hypertension includes labetalol, chlorthalidone, lisinopril, and nifedipine. His labetalol dose was previously lowered from 200 mg to 100 mg, and he currently takes it in divided doses. He acknowledges taking his medications but not always at consistent times. The patient reports having finished a three-week course of Plavix. For hyperlipidemia, the patient is on a 20 mg dose of a cholesterol medication, which was adjusted because of difficulty splitting pills. He has made some dietary changes, such as reducing cheese and eating more salmon. The patient reports that he does not currently have a primary care physician. Results No diagnostic results were reviewed during the visit. [facility] Medical History High blood pressure Hypertension Family History Mother No problems noted. Father Heart problem Hypertension Social History Alcohol intake: never Physical Exam Exam Exam: Physical Exam General: Awake. Comfortable. HENT: Neck supple. Mucosa moist. Pulmonary: Lungs aeration equal. No rales. Cardiology: Heart S1-S2 heard. No gallop. Abdomen: Soft. Non tender. Bowel sounds normal. Neurologic: No involuntary movements. No myoclonus. Extremities: No edema. No rash. Vital Signs: Last Vital Signs Pulse 65 02/08/25 14:45 BP 126/74 02/08/25 14:45 Pulse Ox 99 02/08/25 14:45 Oxygen Delivery Method Room Air 02/08/25 14:45 BMI result Body Mass Index 33.4 Results Reviewed Nephrology Results: Hgb, (14.0-18.0) 14.6 g/dL 12/23/17 WBC, (4.8-10.8) 4.4 X10*3/uL L 12/23/17 Plt Count, (160-400) 198 X10*3/uL 12/23/17 Sodium, (135-145) 137 mmol/L 02/05/25 Potassium, (3.3-5.1) 3.7 mmol/L 02/05/25 Chloride, (96-108) 99 mmol/L 02/05/25 Carbon Dioxide, (22-29) 27 mmol/L 02/05/25 BUN, (9-16) 27 mg/dL H 02/05/25 Creatinine, (0.5-1.4) 1.25 mg/dL 02/05/25 Calcium, (8.4-10.2) 9.6 mg/dL 02/05/25 Assessment & Plan Assessment & Plan (1) Hypertension: Code(s): I10 - Essential (primary) hypertension Category: Medical Qualifiers: Hypertension type: essential hypertension Qualified Code(s): I10 - Essential (primary) hypertension Plan Plan 1. Essential Hypertension - The patient's blood pressure remains elevated, particularly in the mornings, despite a four-drug regimen. - To better assess blood pressure control, a 24-hour ambulatory blood pressure monitoring will be scheduled. - The patient was educated on taking labetalol at consistent 12-hour intervals, such as 9 a.m. and 9 p.m., as it does not provide 24-hour coverage. - The potential to switch to a combination pill will be considered after reviewing the ambulatory blood pressure monitoring results to simplify the regimen. - Refills will be sent for labetalol 100 mg, lisinopril, nifedipine 60 mg, and chlorthalidone. - Plavix will be held as the prescribed course is complete. - Follow-up will occur after the monitoring is complete. YANI ROSE was doen in [facility] and still pending 2. Hyperlipidemia - A fasting blood workup for cholesterol will be ordered for March. - A refill for the 20 mg cholesterol medication will be sent. - The patient was advised on lifestyle modifications, including a plant-based diet, increased protein, reduced carbohydrates, consuming fish like salmon, and incorporating exercise such as walking. Patient Instructions - An appointment will be scheduled for you to wear a blood pressure cuff for 24 hours to monitor your blood pressure throughout the day and night. - Take your labetalol medication twice daily, spacing the doses about 12 hours apart (for example, at 9 a.m. and 9 p.m.). - It is important to take all your medications at the same time each day. - You can take your lisinopril and nifedipine pills at the same time as they do not interact. - Schedule a fasting blood test in March to check your cholesterol. Do not eat for several hours before this test. - To help lower your cholesterol, eat more plant-based foods, fish like salmon, and protein, while reducing carbohydrates. Regular exercise, like walking, is also beneficial. - Refills for your medications (labetalol, lisinopril, nifedipine, chlorthalidone, and your cholesterol pill) have been sent to your [facility] pharmacy. - Follow up after your blood pressure monitoring is complete to review the results. Orders: Orders AMB 24 HR B/P Monitor PLACEMENT Today I10 - Essential (primary) hypertension Lipid Panel 4 Weeks I10 - Essential (primary) hypertension Comprehensive Met. Panel 4 Weeks I10 - Essential (primary) hypertension Medications: New labetalol 100 mg (1/2 x 200 mg) PO BID 60 tabs 1RF chlorthalidone 25 mg PO DAILY 30 tabs 2RF Changed From rosuvastatin 20 mg PO QPM To rosuvastatin 20 mg PO QPM 30 tabs 1RF Refilled lisinopril 40 mg PO DAILY 90 tabs 1RF 3 months Coding Level of Care Code Est Pt Level 4 (08648) Diagnoses Essential hypertension I10 Hypertension type: essential hypertension
--- OUTSIDE RECORDS SUMMARY | 2025-02-08 22:16 | XMS_ITS | Encounter Summary ---
Author Organization [facility] Address [address] [place] [address] Phone Care Team Providers Care Road Sign Installer Name Role Phone Anay Govea MD Primary Care Provid er Pcp, Unknown Primary Care Provider Unavailabl e Encounter Details Date Type Department Care Team (Late st Contact Info) Description 01/16/2025 Procedure Pass [facility], Ct Scan - [address] [address] Social History Tobacco Use Types Packs/Day Years [...] AM EST documented as of this encounter Functional Status * Calculated C-SSRS Risk Score (Lifetime/Recent) Answer Date of Assessment Author No Risk Indicated 01/16/2025 1:39 PM Cari Oden RN * [place] Suicide Severity Rating Scale (Screener/Recent Self-Report) Question [...] Diagnoses Not on filedocumented in this encounter Additional Health Concerns Infection Onset Date Last Indicated Resolved Time Resp-Risk 02/07/2025 02/07/2025 documented as of this encounter Care Teams Road Sign Installer Relationship Specialty Start Date End Date Anay Govea MD [address] [place] [address] PCP - General Internal Medicine 01/16/25 02/06/25 Pcp, Unknown PCP - General 02/07/25 documented as of this encounter Additional Source Comments The information contained in this document represents components of the legal health record. It is not the complete legal health record.[facility]
--- OUTSIDE RECORDS SUMMARY | 2025-02-08 22:16 | XMS_ITS | Encounter Summary ---
Author Organization [facility] Address [address] [place] [address] Phone Care Team Providers Care Child Care Centre Manager Name Role Phone Anay Govea MD Primary Care Provid er Pcp, Unknown Primary Care Provider Unavailabl e Encounter Details Date Type Department Care Team (Late st Contact Info) Description 01/16/2025 Procedure Pass [facility], [address] [address] Social History Tobacco Use Types Packs/Day Years [...] 01/16/2025 1:39 PM Cari Oden RN * [place] Suicide Severity Rating Scale (Screener/Recent Self-Report) Question Answer Date of Assessment Author 1. Wish to be (Past 1 Month) No 025 1:39 PM Cari Oden RN 2. Non-Specific Active Suici jessica Thoughts (Past 1 Month) No 01/16/2025 1:39 PM Cari Oden, YUKO 6. Suicidal Behavior (Lifetime) No 5 1:39 PM Cari Oden RN documented as of this encounter Plan of Treatment Not on file documented as of this encounter Visit Diagnoses Not on filedocumented in this encounter Additional Health Concerns Infection Onset Date Last Indicated Resolved Time Resp-Risk 02/07/2025 02/07/2025 documented as of this encounter Care Teams Child Care Centre Manager Relationship Specialty Start Date End Date Anay Govea MD [address] [place] [address] PCP - General Internal Medicine 01/16/25 02/06/25 Pcp, Unknown PCP - General 02/07/25 documented as of this encounter Additional Source Comments The information contained in this document represents components of the legal health record. It is not the complete legal health record.[facility]
--- OUTSIDE RECORDS SUMMARY | 2025-02-08 22:16 | XMS_ITS | Clinical Summary ---
Author Organization [facility] Address [address] [place] [address] Phone Care Team Providers Care Nurses' Aide Name Role Phone Pcp, Unknown Primary Care Provider Unavailabl e Allergies No known active allergies Medications lisinopril (PRINIVIL,ZESTR IL) 40 MG tablet Take 40 mg by mouth daily. Active chlorthalidone (HYGROTON) 25 MG tablet Take 1 tablet (25 mg total) by mouth daily. 30 tablet 1 5 03/20/19 26 Active labetaloL (TRANDATE) 200 MG tablet Take [...] for 19 doses. 19 tablet 5 01/19/20 25 Discontinued labetaloL (TRANDATE) 200 MG tablet Take 1 tablet (200 mg total) by mouth 2 (two) times a day. 60 tablet 1 5 01/19/20 Discontinued NIFEdipine (ADALAT CC) 60 MG 24 hr tablet Take 1 tablet (60 mg total) by mouth daily. 30 tablet 1 5 01/19/20 25 Discontinued aspirin 81 MG EC tablet Take 1 tablet (81 mg total) by mouth daily. 30 tablet 1 5 01/19/20 Discontinued rosuvastatin (CRESTOR) 40 MG tablet Take 1 tablet (40 mg total) by mouth every evening. 30 tablet 1 5 01/19/20 Discontinued clopidogrel (PLAVIX) 75 mg tablet Take 1 tablet (75 mg total) by mouth daily for 19 doses. 19 tablet 5 02/08/20 Active Problems Problem Noted Date Diagnosed Date Stroke risk 01/17/2025 Right hand weakness 01/16/2025 Assessment & Plan (01/17/2025 3:36 PM EST): - Unclear etiology, symptoms lasted approximately 5 minutes initially starting in the right finger spreading to the hand, arm and into the right lip as well as some numbness and tingling without steel post installer strength loss. --Patient was noted to be [...] well as some numbness and tingling without steel post installer strength loss. -Neurological exam at this time [...] Encounters Date Type Department Care Team Description 02/07/2025 1:13 AM EST - 02/07/2025 2:43 AM EST Emergency [facility] [address] [place] [address] Isadora Brizuela MD Discharge Disposition: Home or Self Care 01/18/2025 Procedure Pass [facility] [address] [place] [address] 01/16/2025 2:15 PM EST - 01/18/2025 3:30 PM EST Hospital Encounter [facility] [address] [place] [address] Keanu Gutiérrez MD Grachev, Maksim, DO Russo, Margaret A, MD McKenna-Weiss, MD Renee Discharge Disposition: Home or Self Care 01/16/2025 Procedure Pass [facility] [address] [place] [address] 01/16/2025 Procedure Pass [facility], Mri - [facility] [address] [place] [address] 01/16/2025 Procedure Pass [facility], Ct Scan [facility] [address] [place] [address] 01/16/2025 Procedure Pass [facility] Ct Scan [facility] [address] [place] [address] from Last 3 Months Social History Tobacco [...] Orientation Straight 02/07/2025 1: 22 AM EST Last Filed Vital Signs Vital Sign Reading [...] 1998 INFLUENZA VACCINE (#1) 2024 COVID-19 VACCINE (1 - 2024-2 6 season) 2024 CREATININE LEVEL [...] ORDER (PRO) STAT 02/07/2025 1:27 AM EST TTE LIMITED W/ AGITATED SALINE Routine 01/18/2025 [...] ANTI-CARDIOLIPIN ANTIBODIES STAT 01/16/2025 6:13 PM EST [id number] I ANTIBODIES STAT 01/16/2025 6:13 PM EST [...] EST from Last 3 Months Results * Carbon Monoxide, Whole Blood (02/07/2025 1:43 AM EST) [facility] Carboxyhemoglobin 1.6 <=2.0 % 025 2:06 AM [facility] Blood (Blood, Venous) Venipuncture / Unknown 02/07/2025 1:43 AM EST 02/07/2025 2:01 AM EST Isadora Brizuela MD LAB BLOOD BKR ORDERABLES Fin al Result Performing Organization Address City/[facility]/ZIP Co de Phone Number [address] [address] * SARS-CoV-2, INFLUENZA A/B, PCR (02/07/2025 1:27 AM EST) [facility] SARS-CoV-2 RNA PCR Not Detected Not Detected 02/07/2025 2:17 AM [facility] Influenza A PCR Not Detected Not Detected 02/07/2025 2:17 AM [facility] Influenza B PCR Not Detected Not Detected 02/07/2025 2:17 AM [facility] Swab (Nasopharynx, Bilateral) Non-Blood Collection / Unknown 02/07/2025 1:27 AM EST 02/07/2025 1:32 AM EST Isadora Brizuela MD LAB GENERAL ORDERABLES Final Result Performing Organization Address [facility]/ZIP Co de Phone Number [address] [address] * Symptomatic Respiratory Virus Testing Panel (ED/IP) (02/07/2025 1:27 AM EST) [facility] SARS Comment 02/07/2025 1:45 AM [facility] Comment:This test automatica lly orders a COVID-19 PCR and may add Flu, RSV, or other viral tests based on patient clinical factors and site protocols. Results will appear below and separately in chart review when available. Swab (Nasopharynx, Bilateral) Non-Blood Collection / Unknown 02/07/2025 1:27 AM EST 02/07/2025 1:32 AM EST Isadora Brizuela MD LAB GENERAL ORDERABLES Final Result [address] [address] * TTE LIMITED W/ AGITATED SALINE (01/18/2025 [...] are no detected shunting changes with maneuvers. Jackson Ledesma MD CV ECHO ORDERABLES Final [...] 4.2 <=21 ng/dL 01/22/2025 10:05 PM EST [facility] Comment: ADDITIONAL INFORMATION Reference range for patients 11 years and older is based on upright A.M. collection from subjects without sodium restrictions. This test was developed and its performance characteristics determined by [facility] in a manner consistent with CLIA requirements. This test has not been cleared or approved by the U.S. Food and Drug Administration. Blood (Blood) 01/18/2025 5:1 0 AM EST 01/18/2025 6:11 AM EST us Renee Moya MD LAB BLOOD BKR ORDERABLES Fi nal Result ACOSTA (BEAKER) [facility] [address] [place], [place] [id number] [place] [address] * Renin Activity (01/18/2025 5:10 AM EST) [facility] Renin Activity, P 3.1 ng/mL/h 025 1:15 PM EST [facility] Comment: REFERENCE VALUE (Peripheral vein specimen) Na-deplete, upright: Mean: 5.9 Range: 2.9-10.8 Na-replete, upright: Mean: 1.0 Range: < or =0.6-3.0 ADDITIONAL INFORMATION Testing performed by Liquid Chromatography-Tandem Mass Spectrometry (LC-MS/MS). This test was developed and its performance characteristics determined by [facility] in a manner consistent with CLIA requirements. This test has not been cleared or approved by the U.S. Food and Drug Administration. Blood (Blood) 01/18/2025 5:1 0 AM EST 01/18/2025 6:08 AM EST Renee Moya MD LAB BLOOD BKR ORDERABLES Fi nal Result ACOSTA (BEAKER) [facility] [address] [phone] * Basic Metabolic Panel (BMP) (01/18/2025 5:10 AM EST) Only the most recent of2 resultswithin the time period is included. Pathologist [facility] Sodium 139 136 - 145 mmol/L 01/18/2025 6:55 AM [facility] Potassium 3.5 3.4 - 5.1 mmol/L 01/18/2025 6:55 AM [facility] Chloride 102 98 - 107 mmol/L 01/18/2025 6:55 AM [facility] CO2 25 20 - 31 mmol/L 01/18/2025 6:55 AM [facility] Anion Gap 12 3 - 17 mmol/L 01/18/2025 6:55 AM [facility] BUN 21 6 - 23 mg/dL 01/18/2025 6:55 AM [facility] Creatinine 1.20 0.60 - 1.30 mg/dL 01/18/2025 6:55 AM [facility] eGFR 76 >59 mL/min/1.7 3m2 01/18/2025 6:55 AM [facility] Comment:Estimated glomerular filtration rate calculated using the CKD-EPI refit equation. Glucose 94 70 - 99 mg/dL 01/18/2025 6:55 AM [facility] Calcium 9.4 8.5 - 10.5 mg/dL 01/18/2025 6:55 AM [facility] Blood (Blood) 01/18/2025 5:1 0 AM EST 01/18/2025 6:11 AM EST Renee Moya MD LAB BLOOD BKR ORDERABLES Fi nal Result STUBBS HASMUKH [address] [address] * US KIDNEY(S) ONLY (01/17/2025 2:45 PM EST) Anatomical Region Laterality Modality Abdomen, Kidney Ultrasound 01/17/2025 2:46 PM EST Impressions 01/17/2025 2:46 PM EST 1. No hydronephrosis. 2. No sonographic evidence for solid renal mass or shadowing stone Narrative 01/17/2025 2:46 PM EST US KIDNEY(S) ONLY Referring clinician's provided indication for this examination in [facility]: Hypertension, primary; accelerated HTN in young person, ?disparate size of kidneys TECHNIQUE: Kidney ultrasound. COMPARISON: None available FINDINGS: Right Kidney: Size: 11.2 cm No stones or hydronephrosis. Left Kidney: Size: 11.6 cm No stones or hydronephrosis. Bladder: Underdistended and therefore not well evaluated. Procedure Note Manny Cloud MD - 01/17/2025 US KIDNEY(S) ONLY Referring clinician's provided indication for this examination in [facility]:Hypertension, primary; accelerated HTN in young person, ?disparate size ofkidneys TECHNIQUE: Kidney ultrasound. COMPARISON: None available FINDINGS: Right Kidney: Size: 11.2 cm No stones or hydronephrosis. Left Kidney: Size: 11.6 cm No stones or hydronephrosis. Bladder: Underdistended and therefore not well evaluated. IMPRESSION: 1. No hydronephrosis. 2. No sonographic evidence for solid renal mass or shadowing stone us Renee Moya MD IMG US RENAL Final Resul t * MRI BRAIN WITHOUT CONTRAST (01/17/2025 10:13 AM EST) Anatomical Region Laterality Modality Head Magnetic Resonan ce 01/17/2025 10:1 5 AM EST Impressions 01/17/2025 10:21 AM EST 1. Probable mild chronic small vessel disease. No acute or subacute infarct. Narrative 01/17/2025 10:21 AM EST MRI BRAIN WITHOUT CONTRAST Referring clinician's provided indication for this examination in [facility]: * Transient ischemic attack (TIA) TECHNIQUE: [...] clinician's provided indication for this examination in [facility]: *Transient ischemic attack (TIA) TECHNIQUE: MRI BRAIN WITHOUT CONTRAST Multi-sequence, multi-planar MRI of the brain was performed withoutintravenous contrast. COMPARISON: CT head January 16, 2025 FINDINGS: Brain Parenchyma: No acute or subacute infarct. There is one smallnonspecific focus of susceptibility effect within the right frontal whitematter. No intracranial mass lesion. There are scattered foci of [id number] in the white matter, likely a manifestation of chronicsmall vessel disease. Ventricular System and Extra-Axial Spaces: Normal. No evidence of midlineshift or hydrocephalus. Extracranial Structures: Expected arterial flow signal is observed at theskull base. IMPRESSION: 1. Probable mild chronic small vessel disease. No acute or subacuteinfarct. James Rashmisvetlana [facility] MR HEAD/NECK Final Result * Comprehensive Metabolic Panel (CMP) (01/17/2025 5:21 AM EST) Sodium 139 136 - 145 mmol/L 01/17/2025 7:03 AM EST [facility] Potassium 3.8 3.4 - 5.1 mmol/L 01/17/2025 7:03 AM [facility] Chloride 102 98 - 107 mmol/L 01/17/2025 7:03 AM [facility] CO2 25 20 - 31 mmol/L 01/17/2025 7:03 AM [facility] Anion Gap 12 3 - 17 mmol/L 01/17/2025 7:03 AM [facility] BUN 16 6 - 23 mg/dL 01/17/2025 7:03 AM [facility] Creatinine 0.90 0.60 - 1.30 mg/dL 01/17/2025 7:03 AM [facility] eGFR 108 >59 mL/min/1.7 3m2 01/17/2025 7:03 AM [facility] Comment:Estimated glomerular filtration rate calculated using the CKD-EPI refit equation. Glucose 94 70 - 99 mg/dL 01/17/2025 7:03 AM [facility] Calcium 9.6 8.5 - 10.5 mg/dL 01/17/2025 7:03 AM [facility] AST 21 <40 U/L 01/17/2025 7:03 AM [facility] ALT 21 <50 U/L 01/17/2025 7:03 AM [facility] Alkaline Phosphatase 93 40 - 130 U/L 01/17/2025 7:03 AM [facility] Bilirubin, Total 1.1 0.0 - 1.2 mg/dL 01/17/2025 7:03 AM [facility] Total Protein 7.5 6.4 - 8.3 g/dL 01/17/2025 7:03 AM [facility] Albumin 4.6 3.5 - 5.2 g/dL 01/17/2025 7:03 AM [facility] Globulin 2.9 1.9 - 4.1 g/dL 01/17/2025 7:03 AM [facility] Blood (Blood) Venipuncture / Unknown 01/17/2025 5:21 AM EST 01/17/2025 6:14 AM EST us James Brady DO LAB BLOOD BKR ORDERABLES Final Result [facility] [address] [place] [address] * Phosphorus (01/17/2025 5:21 AM EST) Phosphorus 3.3 2.5 - 4.5 mg/dL 01/17/2025 7:03 AM [facility] Blood (Blood) Venipuncture / Unknown 01/17/2025 5:21 AM EST 01/17/2025 6:14 AM EST [facility] DO LAB BLOOD BKR ORDERABLES Final Result [address] [address] * Magnesium (01/17/2025 5:21 AM EST) Only the most recent of2 resultswithin the time period is included. Magnesium 2.3 1.7 - 2.6 mg/dL 01/17/2025 7:03 AM [facility] Blood (Blood) Venipuncture / Unknown 01/17/2025 5:21 AM EST 01/17/2025 6:14 AM EST [facility] LAB BLOOD BKR ORDERABLES Final Result [address] [address] * CBC and Differential (01/17/2025 5:20 AM EST) Only the most recent of2 resultswithin the time period is included. WBC 6.28 4.00 - 11.00 K/uL 01/17/2025 6:32 AM [facility] RBC 5.10 4.50 - 5.90 M/uL 01/17/2025 6:32 AM [facility] Hemoglobin 15.3 13.5 - 17.5 g/dL 01/17/2025 6:32 AM [facility] Hematocrit 44.7 41.0 - 53.0 % 01/17/2025 6:32 AM [facility] MCV 87.6 80.0 - 100.0 fL 01/17/2025 6:32 AM [facility] MCH 30.0 27.0 - 31.0 pg 01/17/2025 6:32 AM [facility] MCHC 34.2 32.0 - 36.0 g/dL 01/17/2025 6:32 AM [facility] MPV 11.4 8.4 - 12.0 fL 01/17/2025 6:32 AM [facility] RDW-CV 12.6 11.5 - 14.5 % 01/17/2025 6:32 AM [facility] PLT 209 150 - 450 K/uL 01/17/2025 6:32 AM [facility] Neutrophils 63.3 % 01/17/2025 6:32 AM [facility] Lymphocytes 24.7 % 01/17/2025 6:32 AM [facility] Monocytes 10.4 % 01/17/2025 6:32 AM [facility] Eosinophils 1.0 % 01/17/2025 6:32 AM [facility] Basophils 0.3 % 01/17/2025 6:32 AM [facility] Imm Grans 0.3 % 01/17/2025 6:32 AM [facility] NRBC 0.0 <=0.0 /100 WBCs 01/17/2025 6:32 AM [facility] Absolute Neutrophils 3.98 1.92 - 7.60 K/uL 01/17/2025 6:32 AM [facility] Absolute Lymphocytes 1.55 0.72 - 4.10 K/uL 01/17/2025 6:32 AM [facility] Absolute Monocytes 0.65 0.16 - 1.10 K/uL 01/17/2025 6:32 AM [facility] Absolute Eosinophils 0.06 0.00 - 0.50 K/uL 01/17/2025 6:32 AM [facility] Absolute Basophils 0.02 0.00 - 0.15 K/uL 01/17/2025 6:32 AM [facility] Absolute Imm Grans 0.02 0.00 - 0.09 K/uL 01/17/2025 6:32 AM [facility] Absolute NRBC 0.00 <=0.00 K cells/uL 01/17/2025 6:32 AM [facility] Absolute Neutrophils 3.98 1.92 - 7.60 K/uL 01/17/2025 6:32 AM EST [facility] Comment:Automated cell count . Manual ANC may differ if performed. Diff Type Auto 01/17/2025 6:32 AM EST [facility] Blood (Blood) Venipuncture / Unknown 01/17/2025 5:20 AM EST 01/17/2025 6:14 AM EST ICEdot DO LAB BLOOD BKR ORDERABLES Final Result Performing Organization Address City/[facility]/ZIP Co de Phone Number [facility] [address] [place] [address] * Lipoprotein(a) (01/16/2025 6:14 PM EST) Blood (Blood) Venipuncture / Unknown 01/16/2025 6:14 PM EST 01/16/2025 6:16 PM EST ICEdot DO LAB BLOOD BKR ORDERABLES Final Result Performing Organization Address City/[facility]/ZIP Co de Phone Number DAVID LARSON) [address] * CCP Antibody, IgG (01/16/2025 6:14 PM EST) CCP Antibody, IgG <8 0 - 16 U/mL 01/18/2025 12:41 PM EST [facility] Blood (Blood) Venipuncture / Unknown 01/16/2025 6:14 PM EST 01/16/2025 6:16 PM EST ICEdot DO LAB BLOOD BKR ORDERABLES Final Result [address] [address] * Erythrocyte Sedimentation Rate (ESR) (01/16/2025 6:14 PM EST) ESR 9 0 - 15 mm/h 01/16/2025 6:32 PM EST [facility] Blood (Blood) Venipuncture / Unknown 01/16/2025 6:14 PM EST 01/16/2025 6:17 PM EST us James Plairchev DO LAB BLOOD BKR ORDERABLES Final Result [address] [address] * Rheumatoid Factor (01/16/2025 6:14 PM EST) Pathologist [facility] Rheumatoid Factor (RF) <10 <=14 IU/ml 01/16/2025 6:48 PM EST [facility] Blood (Blood) Venipuncture / Unknown 01/16/2025 6:14 PM EST 01/16/2025 6:17 PM EST us James Plairchev DO LAB BLOOD BKR ORDERABLES Final Result Performing Organization Address [facility]/ZIP Co de Phone Number [address] [address] * C-Reactive Protein (CRP) (01/16/2025 6:14 PM EST) Pathologist [facility] C Reactive Protein <3.0 <10.0 mg/L 01/16/2025 6:48 PM EST [facility] Comment:NOTE: This reference range is for the evaluation of inflammation. Order CRP, High Sensitivity for cardiac risk status evaluation. Blood (Blood) Venipuncture / Unknown 01/16/2025 6:14 PM EST 01/16/2025 6:17 PM EST us James Grachev DO LAB BLOOD BKR ORDERABLES Final Result Performing Organization Address [facility]/ZIP Co de Phone Number [address] [address] * PTT (Special Coagulation) (01/16/2025 6:13 PM EST) Pathologist [facility] PTT 30.3 24.0 - 37.5 sec 01/18/2025 9:50 AM [facility] Blood (Blood) Venipuncture / Unknown 01/16/2025 6:13 PM EST 01/16/2025 6:16 PM EST [facility] DO LAB BLOOD BKR ORDERABLES Final Result Performing Organization Address [facility] Co de Phone Number [address] [address] * PT/INR (Special Coagulation) (01/16/2025 6:13 PM EST) [facility] PT 12.8 10.0 - 13.0 sec 01/18/2025 10:05 AM [facility] INR 1.1 0.9 - 1.1 01/18/2025 10:05 AM [facility] Blood (Blood) Venipuncture / Unknown 01/16/2025 6:13 PM EST 01/16/2025 6:16 PM EST James Jose Antonio LAB BLOOD BKR ORDERABLES Final Result Performing Organization Address [facility] de Phone Number [address] [address] * Special Coagulation Interpretation (01/16/2025 6:13 PM EST) [facility] Special Coagulation Interpretation 1. The PT and PTT are within the reference ranges. 2. No evidence of antiphospholipid antibodies. The DRVVT and PTT-LA screens are negative for a lupus anticoagulant. The IgG/IgM anti-beta2 glycoprotein I and IgG/IgM anticardiolipin antibodies are NOT elevated. 01/22/2025 4:20 PM [facility] Comment: . Blood (Blood) Venipuncture / Unknown 01/16/2025 6:13 PM EST 01/16/2025 6:16 PM EST Vessel[employer]anguardv DO LAB BLOOD BKR ORDERABLES Final Result [address] [address] * Tqeu-8-Mrepcikcwnmc I Antibodies (01/16/2025 6:13 PM EST) [facility] Beta 2 GP1 Ab IgG, S <9.4 <15.0 (Negative) [facility] 01/19/2025 11:43 AM EST [facility] Beta 2 GP1 Ab IgM, S <9.4 <15.0 (Negative) [facility] 01/19/2025 11:43 AM EST [facility] Blood (Blood) Venipuncture / Unknown 01/16/2025 6:13 PM EST 01/16/2025 6:17 PM EST Akuminachev DO LAB BLOOD BKR ORDERABLES Final Result [facility]STA (BEAKER) [facility] [address] [phone] * Lupus Anticoagulant Panel (01/16/2025 6:13 PM EST) [facility] PTT-LA Screen Negative for a lupus anticoagulant Negative for a lupus anticoagulant 5 10:07 AM EST [facility] DRVVT Screen Negative for a lupus anticoagulant Negative for a lupus anticoagulant 5 10:07 AM EST [facility] Comment:This result was prev iously suppressed from the chart. Blood (Blood) Venipuncture / Unknown 01/16/2025 6:13 PM EST 01/16/2025 6:16 PM EST Akuminachev DO LAB BLOOD BKR ORDERABLES Final Result [address] [address] * Anti-Cardiolipin Antibodies (01/16/2025 6:13 PM EST) [facility] Phospholipid Ab IgM, S <9.4 <15.0 (Negative) [facility] 01/19/2025 9:47 PM EST [facility] Phospholipid Ab IgG, S <9.4 <15.0 (Negative) [facility] 01/19/2025 9:47 PM EST [facility] Blood (Blood) Venipuncture / Unknown 01/16/2025 6:13 PM EST 01/16/2025 6:17 PM EST ICEdot DO LAB BLOOD BKR ORDERABLES Final Result [place] ([place]) [place] [address], [facility] [phone] * Anti-Neutrophil Cytoplasmic Antibody (ANCA) (01/16/2025 6:13 PM EST) [facility] Myeloperoxidase Ab, S <0.2 <0.4 (Negative ) U 01/18/2025 11:11 AM EST [facility] Proteinase 3 Ab (PR3), S <0.2 <0.4 (Negative ) U 01/18/2025 11:11 AM EST [facility] Blood (Blood) Venipuncture / Unknown 01/16/2025 6:13 PM EST 01/16/2025 6:17 PM EST us VesselVanguardv DO LAB BLOOD BKR ORDERABLES Final Result [facility]STA (BEAKER) [address] [phone] * D-Dimer (01/16/2025 6:13 PM EST) [facility] D-Dimer 483 <500 ng/mL FEU 01/16/2025 6:38 PM EST [facility] Comment:A negative D-dimer r esult (at a cut off of 500 ng/mL FEU) when combined with a clinical assessment of low pretest probability has been shown to have a high negative predictive value for DVT or PE. Clinical correlation is required. Blood (Blood) Venipuncture / Unknown 01/16/2025 6:13 PM EST 01/16/2025 6:17 PM EST [facility] DO LAB BLOOD BKR ORDERABLES Final Result Performing Organization Address City/[facility]/ZIP Co de Phone Number [facility] [address] [place] [address] * Homocysteine (01/16/2025 6:13 PM EST) Homocysteine, Total 8.7 0.0 - 14.2 umol/L 01/18/2025 11:40 AM EST [facility] Blood (Blood) Venipuncture / Unknown 01/16/2025 6:13 PM EST 01/16/2025 6:16 PM EST [facility] DO LAB BLOOD BKR ORDERABLES Final Result Performing Organization Address City/[facility]/ZIP Co de Phone Number [address] [address] * (ABNORMAL) Urinalysis with Reflex to Urine Culture (01/16/2025 5:09 PM EST) Color Yellow Yellow 01/16/2025 5:37 PM [facility] Clarity Clear Clear 01/16/2025 5:37 PM [facility] Glucose Negative Negative 01/16/2025 5:37 PM [facility] Bilirubin Urine Negative Negative 5:37 PM [facility] Ketone Urine 1+(A) Negative 01/16/2025 5:37 PM [facility] Specific Reagan <=1.005 1.001 - 1.035 01/16/2025 5:37 PM [facility] Blood Negative Negative 01/16/2025 5:37 PM [facility] pH 6.5 5.0 - 8.0 01/16/2025 5:37 PM [facility] Protein Negative Negative 01/16/2025 5:37 PM [facility] Nitrites Negative Negative 01/16/2025 5:37 PM [facility] Leukocyte Esterase Negative Negative 01/16/2025 5:37 PM [facility] Urobilinogen Negative Negative 01/16/2025 5:37 PM [facility] Urine (Urine, Voided) Non-Blood Collection / Unknown 01/16/2025 5:09 PM EST 01/16/2025 5:36 PM EST Keanu Gutiérrez MD LAB URINE ORDERABLES Final Resu lt [facility] [address] [place] [address] * Toxicology Screen, Urine (01/16/2025 5:09 PM EST) [facility] Amphetamines, Urine Negative Negative 01/16/2025 5:45 PM [facility] Benzodiazepine , Urine Negative Negative 01/16/2025 5:45 PM [facility] Cocaine Metabolite, Urine Negative Negative 01/16/2025 5:45 PM [facility] Opiates, Urine Negative Negative 01/16/2025 5:45 PM [facility] Oxycodone, Urine Negative Negative 01/16/2025 5:45 PM [facility] Fentanyl, Urine Negative Negative 01/16/2025 5:45 PM [facility] Creatinine, Urine 50 20 - 300 mg/dL 01/16/2025 5:45 PM [facility] Urine (Urine, Voided) Non-Blood Collection / Unknown 01/16/2025 5:09 PM EST 01/16/2025 5:25 PM EST Narrative [facility] - 01/16/2025 5:45 PM EST This screening [...] ORDERABLES Final Resu lt Performing Organization Address [facility]/ZIP Co de Phone Number [address] [address] * ECG 12-LEAD (01/16/2025 2:44 PM EST) Ventricular Rate EKG/MIN 98 BPM [facility] Atrial Rate 98 BPM [facility] VA Interval 128 ms [facility] QRS Duration 92 ms [facility] QT Interval 372 ms [facility] QTC Interval 474 ms [facility] P [place] 31 degrees [facility] R Wave [place] 39 degrees [facility] T Wave [place] 10 degrees [facility] 01/16/2025 2:44 PM EST 01/17/2025 12:58 PM EST Narrative [facility] - 01/17/2025 12:58 PM EST Normal sinus rhythm Normal ECG No previous ECGs available Confirmed by Jackson Ledesma ([id number]) on 01/17/2025 12:58:50 PM Keanu Gutiérrez MD ECG ORDERABLES Final Result Performing Organization Address [facility] Co de Phone Number [email or web address] * (ABNORMAL) POCT Glucose (01/16/2025 2:37 PM EST) [facility] Glucose 109(H) 70 - 99 mg/dL 01/16/2025 2:42 PM EST [facility] Blood (Blood) 01/16/2025 2:3 7 PM EST 01/16/2025 2:42 PM EST Keanu Gutiérrez MD LAB POCT DOCKED DEVICE UNSOLICT ED RESULTS Final Result Performing Organization Address [facility] Co de Phone Number [address] [address] * Ethanol, Blood (01/16/2025 2:33 PM EST) Pathologist [facility] [place] Ethanol <10 Negative; <11 mg/dL 01/16/2025 3:51 PM EST [facility] Blood (Blood) Venipuncture / Unknown 01/16/2025 2:33 PM EST 01/16/2025 3:28 PM EST us Keanu Gutiérrez MD LAB BLOOD BKR ORDERABLES Final Result Performing Organization Address City/[facility]/ZIP Co de Phone Number [address] [address] * Thyroid Stimulating Hormone (TSH), with Reflex (01/16/2025 2:33 PM EST) TSH 1.28 0.40 - 5.00 uIU/mL 01/16/2025 3:51 PM EST [facility] Blood (Blood) Venipuncture / Unknown 01/16/2025 2:33 PM EST 01/16/2025 3:28 PM EST us Keanu Gutiérrez MD LAB BLOOD BKR ORDERABLES Final Result Performing Organization Address [facility] Co de Phone Number [address] [address] * Hepatic Panel (LFTs) (01/16/2025 2:33 PM EST) AST 25 <40 U/L 01/16/2025 3:51 PM [facility] ALT 23 <50 U/L 01/16/2025 3:51 PM [facility] Alkaline Phosphatase 96 40 - 130 U/L 01/16/2025 3:51 PM [facility] Bilirubin, Total 0.7 0.0 - 1.2 mg/dL 01/16/2025 3:51 PM [facility] Bilirubin, Direct 0.2 0.0 - 0.3 mg/dL 01/16/2025 3:51 PM [facility] Total Protein 7.5 6.4 - 8.3 g/dL 01/16/2025 3:51 PM [facility] Albumin 4.5 3.5 - 5.2 g/dL 01/16/2025 3:51 PM [facility] Globulin 3.0 1.9 - 4.1 g/dL 01/16/2025 3:51 PM [facility] Blood (Blood) Venipuncture / Unknown 01/16/2025 2:33 PM EST 01/16/2025 3:28 PM EST us Keanu Gutiérrez MD LAB BLOOD BKR ORDERABLES Final Result Performing Organization Address City/[facility]/ZIP Co de Phone Number [address] [address] * PT-INR (01/16/2025 2:33 PM EST) Pathologist [facility] [place] PT 12.9 10.0 - 13.0 sec 01/16/2025 3:10 PM EST [facility] INR 1.0 0.9 - 1.1 01/16/2025 3:10 PM [facility] Comment:Therapeutic Range 2. 0 - 3.5 Blood (Blood) Venipuncture / Unknown 01/16/2025 2:33 PM EST 01/16/2025 3:06 PM EST us Keanu Gutiérrez MD LAB BLOOD BKR ORDERABLES Final Result Performing Organization Address [facility]/ZIP Co de Phone Number [address] [address] * Troponin (01/16/2025 2:33 PM EST) Pathologist [facility] [place] Troponin-T HS Gen5 9 0 - 14 ng/L 01/16/2025 3:08 PM EST [facility] Blood (Blood) Venipuncture / Unknown 01/16/2025 2:33 PM EST 01/16/2025 2:56 PM EST us Keanu Gutiérrez MD LAB BLOOD BKR ORDERABLES Final Result Performing Organization Address City/[facility]/ZIP Co de Phone Number [address] [address] * Hemoglobin A1c (01/16/2025 2:33 PM EST) Pathologist [facility] [place] Hemoglobin A1c 5.6 4.3 - 5.6 % 01/16/2025 4:44 PM [facility] Calculated Mean Blood Glucose 114 mg/dL 01/16/2025 4:44 PM [facility] Comment:There is no [facility] normal range for the Estimated Average Glucose [...] MD LAB BLOOD BKR ORDERABLES Final Result [address] [address] * (ABNORMAL) Lipid Panel (01/16/2025 2:33 PM EST) Cholesterol 194 <200 mg/dL 01/16/2025 3:51 PM [facility] HDL 40 >=40 mg/dL 01/16/2025 3:51 PM [facility] Calculated LDL 108 <130 mg/dL 01/16/2025 3:51 PM [facility] Comment:LDL is calculated us ing the Raymundo-NIH equation (RITCHIE Cardiol. 2019June 29;5(5):540-548). Non-HDL Cholesterol 154 mg/dL 01/16/2025 3:51 PM [facility] Comment:Guidelines suggest a non-HDL cholesterol goal 30 mg/dL higher than the patient-specific LDL cholesterol goal. Cardiac Risk Ratio 4.9 0.0 - 5.0 2024 3:51 PM [facility] Triglycerides 266(H) <=150 mg/dL 01/16/2025 3:51 PM [facility] Blood (Blood) Venipuncture / Unknown 01/16/2025 2:33 PM EST 01/16/2025 3:28 PM EST us Keanu Gutiérrez MD LAB BLOOD BKR ORDERABLES Final Result [address] [id number] * CT ANGIO HEAD (CODE STROKE) W CONTRAST, CT ANGIO NECK W CONTRAST (01/16/2025 2:09 PM EST) [facility] CLINICAL EDUCATION SPECIALIST COMMENT No acute intracranial findings on noncontrast head CT. No large vessel occlusion, high-grade stenosis, aneurysm or dissection in the head or neck. [facility] Anatomical Region Laterality Modality Neck Computed Tomogra phy 01/16/2025 2:12 PM EST Impressions 01/16/2025 2:49 PM EST 1. No acute intracranial findings on noncontrast head CT. 2. No large vessel occlusion, high-grade stenosis, aneurysm or dissection in the head or neck. A clinically significant result was initiated on 01/16/2025 2:25 PM, Message ID [id number]. ATTESTATION: I, Nikhil Marcus as teaching physician, [...] was initiated on 01/16/2025 2:25 PM,Message ID [id number]. ATTESTATION: I, Nikhil Marcus as teaching physician, have reviewed theimages for this case and if necessary edited the report originally createdby Jose Larsen MD. Keanu Gutiérrez MD [facility] CT HEAD/NECK Final Result * CT HEAD (CODE STROKE) WITHOUT CONTRAST (01/16/2025 2:09 PM EST) [facility] IMG CLINICAL EDUCATION SPECIALIST COMMENT No acute intracranial findings on noncontrast head CT. No large vessel occlusion, high-grade stenosis, aneurysm or dissection in the head or neck. [facility] Anatomical Region Laterality Modality Head Computed Tomogra phy 01/16/2025 2:12 PM EST Impressions 01/16/2025 2:49 PM EST 1. No acute intracranial findings on noncontrast head CT. 2. No large vessel occlusion, high-grade stenosis, aneurysm or dissection in the head or neck. A clinically significant result was initiated on 01/16/2025 2:25 PM, Message ID [id number]. ATTESTATION: I, Nikhil Marcus as teaching physician, [...] the cervical spine. Procedure Note Nikhil Marcus MB - 01/16/2025 CT ANGIO HEAD (CODE STROKE) [...] was initiated on 01/16/2025 2:25 PM,Message ID [id number]. ATTESTATION: I, Nikhil Marcus as teaching physician, have reviewed theimages for this case and if necessary edited the report originally createdby Jose Larsen MD. Keanu Gutiérrez MD IMG CT HEAD/NECK Final Result from Last 3 Months Additional Health Concerns Infection Onset Date Last Indicated Resp-Risk 02/07/2025 02/07/2025 Advance Directives For more information, please contact: [phone] (9AM - 5PM [facility], Wednesday-Wednesday) * Full Code (Latest Code Status on File) Date Activated Date Inactivated Comments 01/16/2025 11:23 PM Question Answer Comments Code Status Confirmed With: Patient Code Status Communicated To: Inpatient Attending Care Teams Nurses' Aide Relationship Specialty Start Date End Date Pcp, Unknown PCP - General 02/07/25 Additional Source Comments The information contained in this document represents components of the legal health record. It is not the complete legal health record.[facility]
--- OUTSIDE RECORDS SUMMARY | 2025-02-08 22:16 | XMS_ITS | Encounter Summary ---
Author Organization [facility] Address [address] [place] [address] Phone Care Team Providers Care Learning Program Manager Name Role Phone Anay Govea MD Primary Care Provid er Pcp, Unknown Primary Care Provider Unavailabl e Encounter Details Date Type Department Care Team (Late st Contact Info) Description 01/16/2025 Procedure Pass [facility], Ct Scan - [address] [address] Social History Tobacco Use Types Packs/Day Years [...] 01/16/2025 1:39 PM Cari Oden RN * [place] Suicide Severity Rating Scale (Screener/Recent Self-Report) Question [...] documented as of this encounter Care Teams Learning Program Manager Relationship Specialty Start Date End Date Anay Govea MD [address] [place] [address] PCP - General Internal Medicine 01/16/25 02/06/25 Pcp, Unknown PCP - General 02/07/25 documented as of this encounter Additional Source Comments The information contained in this document represents components of the legal health record. It is not the complete legal health record.[facility]
--- OUTSIDE RECORDS SUMMARY | 2025-02-08 22:16 | XMS_ITS | Encounter Summary ---
Author Organization [facility] Address [address] [place] [phone] Phone Care Team Providers Care Application Support Lead Name Role Phone Anay Govea MD Primary Care Provid er Pcp, Unknown Primary Care Provider Unavailabl e Encounter Details Date Type Department Care Team (Late st Contact Info) Description 01/16/2025 Procedure Pass [facility] [address] [place] [address] Social History Tobacco Use Types Packs/Day Years [...] your housing situation today? I have osbaldo baez 01/16/2025 How many times have you move [...] 01/16/2025 1:39 PM Cari Oden RN * [place] Suicide Severity Rating Scale (Screener/Recent Self-Report) Question Answer Date of Assessment Author 1. Wish to be (Past 1 Month) No 025 1:39 PM Cari Oden RN 2. Non-Specific Active Suici jessica Thoughts (Past 1 Month) No 01/16/2025 1:39 PM Cari Oden RN 6. Suicidal Behavior (Lifetime) No 1:39 PM Cari Oden RN documented as of this encounter Plan of Treatment Not on file documented as of this encounter Visit Diagnoses Not on filedocumented in this encounter Additional Health Concerns Infection Onset Date Last Indicated Resolved Time Resp-Risk 02/07/2025 02/07/2025 documented as of this encounter Care Teams Application Support Lead Relationship Specialty Start Date End Date Anay Govea MD [address] [place] [id number] PCP - General Internal Medicine 01/16/25 02/06/25 Pcp, Unknown PCP - General 02/07/25 documented as of this encounter Additional Source Comments The information contained in this document represents components of the legal health record. It is not the complete legal health record.[facility]
--- OUTSIDE RECORDS SUMMARY | 2025-02-08 22:16 | XMS_ITS | Encounter Summary ---
Author Organization [facility] Address [address] [place] [phone] Phone Care Team Providers Care Forensic Chemist Name Role Phone Anay Govea MD Primary Care Provid er Pcp, Unknown Primary Care Provider Unavailabl e Encounter Details Date Type Department Care Team (Late st Contact Info) Description 01/18/2025 Procedure Pass [facility] [address] [place] [address] Social History Tobacco Use Types Packs/Day Years [...] is your housing situation today? I have osbadlo baez 01/16/2025 How many times have you [...] AM EST documented as of this encounter Plan of Treatment Not on file documented as of this encounter Visit Diagnoses Not on filedocumented in this encounter Additional Health Concerns Infection Onset Date Last Indicated Resolved Time Resp-Risk 02/07/2025 02/07/2025 documented as of this encounter Care Teams Forensic Chemist Relationship Specialty Start Date End Date Anay Govea MD [address] [place] [address] PCP - General Internal Medicine 01/16/25 02/06/25 Pcp, Unknown PCP - General 02/07/25 documented as of this encounter Additional Source Comments The information contained in this document represents components of the legal health record. It is not the complete legal health record.[facility]
== END 2025-02-08 15:20 | disposition home or self-care (01) ==
LOC: HO.HKA 14:41
PROVIDERS: PCP Internal Medicine; Visit Provider Internal Medicine Hypertension Specialist
DX: I10 Essential (primary) hypertension (principal)
CPT/HCPCS: 99214

== ENCOUNTER → 2025-02-08 14:41 | Outpatient (BNVA) | payer SELFPAY | PROVIDERS: PCP Internal Medicine; Visit Provider Internal Medicine Hypertension Specialist | DX: I10 Essential (primary) hypertension (principal); E78.5 Hyperlipidemia, unspecified; Z79.899 Other long term (current) drug therapy | CPT/HCPCS: 99212 ==

== ENCOUNTER → 2025-02-09 15:30 | Outpatient (BNVA) | payer OTHER, SELFPAY | PROVIDERS: PCP Internal Medicine; Visit Provider Internal Medicine Hypertension Specialist | DX: R03.0 Elevated blood-pressure reading, without diagnosis of hypertension (principal) | CPT/HCPCS: 93786; 93788 ==